=== PATIENT | female | born 2000 | race Caucasian/White ===

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

== ENCOUNTER 2021-06-25 12:54 | Emergency (ER) | payer OTHER, SELFPAY ==
[2021-06-25 12:55] VITALS: BP 153/91; PULSE 97; RESP 16; TEMP 36.9; O2SAT 97; BMI 23.3
--- NOTE | 2021-06-25 13:15 | CT_ITS ---
EXAM: CT ABDOMEN AND PELVIS WITH INTRAVENOUS CONTRAST CLINICAL INDICATION: Abdominal pain. TECHNIQUE: Helically acquired images were obtained of the abdomen and pelvis with intravenous contrast. This CT exam was performed using one or more of the following dose reduction techniques: automated exposure control, adjustment of the mA and/or kV according to patient size, and/or use of iterative reconstruction technique. This report was created using [employer] report generation technology. CONTRAST: Oral and amp; IV Gastrografin and amp; 100mL Isovue-300 COMPARISON: None. FINDINGS: LOWER THORAX: Unremarkable. Lung bases are clear. No cardiomegaly. No significant pericardial effusion. ABDOMEN: LIVER: Unremarkable. Homogeneous. No focal mass. GALLBLADDER AND BILE DUCTS: Unremarkable. No calcified gallstones. No gallbladder distention or wall edema. No intra- or extrahepatic biliary ductal dilation. PANCREAS: Unremarkable. No focal cystic or solid mass. SPLEEN: Unremarkable. Normal size without focal cystic or solid mass. ADRENALS: Unremarkable. No nodules. KIDNEYS AND URETERS: Unremarkable. Normal renal size and position. No hydronephrosis. STOMACH AND BOWEL: Gaseous dilatation of the rectum. Minimal gas in the remaining colon. Contrast in the ascending colon. Contrast in normal small bowel loops. No focal inflammatory change. PELVIS: APPENDIX: Normal. BLADDER: Unremarkable. REPRODUCTIVE: IUD device inside the anteverted uterus. ABDOMEN and PELVIS: INTRAPERITONEAL SPACE: Unremarkable. No ascites or other fluid collection. No free air. BONES/JOINTS: Unremarkable. No suspicious lytic or blastic abnormality. SOFT TISSUES: Unremarkable. No discrete abdominal or pelvic wall hernia. VASCULATURE: Unremarkable. Abdominal aorta is non-dilated. LYMPH NODES: Unremarkable. No enlarged lymph nodes. CT/Abdomen/Pelvis WITH Contrast IMPRESSION: No acute findings in the abdomen or pelvis. Electronically Signed: Zeke Ibarra MD at 15:32 EST ,
--- NOTE | 2021-06-25 13:16 | EDS_ITS ---
HPI History of Present Illness Chief Complaint: Abn Labs Detail of Chief Complaint: Abdominal pain and abnormal labs Informant: patient and parent Narrative Narrative: Patient presents to the emergency department chief complaint of abdominal pain that initially started about a month ago. Patient states that she has been vomiting daily several times a day. Patient was seen by her primary care physician who did some blood work and then was called and told to come to the ER because she had abnormal labs including a elevated white blood cell count and possibly an elevated lipase. Patient denies any blood in her stool or black tarry stools. She denies fevers. Patient currently having some vaginal spotting and does not typically have periods because she is on the Mirena IUD. Patient states her last bowel movement was about 5 or 6 days ago. Patient states she really has not eaten very much in the last 5 or 6 days. Prior similar symptoms: No PFSH PFSH Medical History no medical history Home Medications acetylcysteine 600 mg PO BID 06/25/21 [History Last Taken Unknown] lamotrigine 100 mg PO QHS 06/25/21 [History Last Taken Unknown] omeprazole 40 mg PO DAILY 06/25/21 [History Last Taken Unknown] ondansetron [Zofran ODT] 4 mg PO Q6H PRN 06/25/21 [History Last Taken Unknown] trazodone 50 mg PO QHS 06/25/21 [History Last Taken Unknown] Allergy/AdvReac Type Severity Reaction Status Date / Time No Known Allergies Allergy Verified 11/03/18 07:13 Surgical History no surgical history Social History Smoking Status: Never smoker [facility] ED Constitutional Constitutional ED: Reports systems reviewed and no addt'l complaints, except as documented; Denies body ache(s), change in weight or chills Eyes Eyes: Denies acute decrease in peripheral vision, change in vision, double vision or loss of vision ENT ENT ED: Reports none; Denies ear pain, lip swelling, loss taste/smell, neck pain, otalgia or sore throat Cardiovascular Cardiovascular: Reports none; Denies abdominal pain, chest pain with activity, leg edema, lightheadedness, palpitations, rapid heart rate or syncope Respiratory/Chest Respiratory/Chest: Reports none; Denies change in mental status, dry cough, dyspnea, hemoptysis, shortness of breath at rest or shortness of breath with exertion Gastrointestinal Gastrointestinal: Reports none, abdominal pain, nausea and vomiting; Denies change in stool character, diarrhea, hematemesis, hematochezia, melena or rectal bleeding Genitourinary Genitourinary ED: Reports none; Denies abdominal discomfort, anuria, dysuria, genital pain or polyuria Musculoskeletal Musculoskeletal: Reports none; Denies arthralgias, back pain, difficulty walking, extremity pain, muscle weakness or myalgias Integumentary Reports none; Denies abscess or rash Neurologic Neurologic: Reports none; Denies abnormal gait, confusion, focal weakness, frequent falls, headache(s), loss of vision, numbness, paresthesias, radicular pain, vertigo or weakness Psychiatric Psychiatric: Reports systems reviewed and no addt'l complaints, except as documented and none; Denies behavioral changes, confusion, difficulty concentrating, hallucinations, suicidal ideation, tactile hallucinations or visual hallucinations Endocrine Endocrinology: Denies none, cold intolerance, excessive sweating, fatigue or heat intolerance Hematologic/Lymphatic Hematologic/Lymphatic: Reports none; Denies anemia, easy bleeding or easy bruising Allergic/Immunologic Allergic/Immunologic ED: Denies as per HPI, none, lip swelling, mouth swelling, throat swelling, tongue swelling or hives EXAM Physical Exam Const Vital Signs: 06/25/21 12:55 06/25/21 13:03 06/25/21 15:03 Temperature 98.4 F Temperature Source Temporal Pulse Rate 97 68 Respiratory Rate 16 16 Respiratory Effort Normal Respiratory Pattern Normal Blood Pressure 153/91 H 115/78 Blood Pressure Mean 111 90 Pulse Ox 97 98 Oxygen Delivery Method Room Air Room Air Positive well nourished and well developed General Appearance ED: well developed and NAD HEENT Reports TM's clear and moist mucous membranes normocephalic and atraumatic; Negative for trauma or tenderness Tympanic Membrane ED: Yes TM's clear Eyes PERRL and EOMs intact bilaterally General Eye ED: Negative for pale conjunctiva or scleral icterus Neck no lymphadenopathy, supple and no JVD General: Negative for tenderness Chest Wall inspection of chest normal and palpation of chest normal Chest: Negative for tenderness Resp normal respiratory effort and clear to auscultation bilaterally Effort and Inspection: Negative for respiratory distress or pain with movement Auscultation: Negative for rhonchi, wheezes or diminished lung sounds Cardio regular rate, regular rhythm, S1 normal heart sound, S2 normal heart sound and no murmurs Peripheral Pulses: pulses 2+ throughout GI normal to inspection, nondistended, normoactive bowel sounds, soft to palpation, non-distended and no masses GI Narrative: Patient with diffuse tenderness to the epigastric region with guarding. There is no rebound, rigidity, or peritoneal signs. Patient also with tenderness to the left lower quadrant with some guarding. Back/Spine no CVA tenderness and no thoracic nor lumbar tenderness Extremity normal to inspection General Extremety ED: Negative for edema General Extremity: Negative for edema Neuro oriented x3, CN's II-XII intact bilaterally, no sensory deficits noted and gait normal Sensorium / Orientation: awake, alert, oriented to person, oriented to place and oriented to time Motor Exam: strength 5/5 throughout and strength abnormal Psych mental status grossly normal Skin no rashes or lesions noted and no wounds MDM MDM MDM Narrative Medical decision making narrative: IV line established on arrival. Patient did not anything for pain or nausea. Lab work-up was essentially unremarkable. Patient also had a CT scan of the abdomen pelvis that was normal. At this point etiology of her pain is unclear. Patient has an ultrasound scheduled of the abdomen tomorrow and she is advised to continue with that. Patient has Zofran at home for nausea and also was started on Prilosec by her primary care physician she is to continue with that. At this point etiology of her pain is unclear. I will refer her to GI locally for follow-up although they do state that their PCP arranged follow-up with GI but not till the end of July so they will see if they can get in sooner with Dr. Wesley's office. Patient advised to return if worsening pain, fever, vomiting, hematemesis, black tarry stool, or condition should worsen anyway. Lab Data Attestation: I reviewed the patient's lab results. Labs: Laboratory Results - last 24 hr 06/25/21 06/25/21 06/25/21 13:25 13:25 13:25 WBC 9.2 RBC 4.97 Hgb 15.9 H Hct 46.8 MCV 94.2 MCH 32.0 MCHC 34.0 RDW Std Deviation 42.7 RDW Coeff of [place] 12.2 Plt Count 253 MPV 9.3 Immature Gran % (Auto) 0.200 Neut % (Auto) 73.7 H Lymph % (Auto) 20.1 [place] % (Auto) 5.5 Eos % (Auto) 0.1 Baso % (Auto) 0.4 Absolute Neuts (auto) 6.7 Absolute Lymphs (auto) 1.84 Nucleated RBC % 0 Sodium 137 Potassium 3.7 Chloride 103 Carbon Dioxide 26.0 Anion Gap 8 BUN 14 Creatinine 0.81 Estim Creat Clear Calc 90.88 Est GFR (MDRD) Af Amer 115 Est GFR (MDRD) Non-Af 95 BUN/Creatinine Ratio 17.4 Glucose 85 Lactic Acid 1.0 Calcium 9.3 Total Bilirubin 0.80 AST 18 ALT 21 Alkaline Phosphatase 55 Total Protein 7.7 Albumin 4.5 Globulin 3.2 Albumin/Globulin Ratio 1.4 Lipase 403 H Serum , Qual Urine Color Urine Clarity Urine pH Ur Specific [place] Urine Protein Urine Glucose (UA) Urine Ketones Urine Occult Blood Urine Nitrite Urine Bilirubin Urine Urobilinogen Ur Leukocyte Esterase 06/25/21 06/25/21 13:25 15:05 WBC RBC Hgb Hct MCV MCH MCHC RDW Std Deviation RDW Coeff of [place] Plt Count MPV Immature Gran % (Auto) Neut % (Auto) Lymph % (Auto) [place] % (Auto) Eos % (Auto) Baso % (Auto) Absolute Neuts (auto) Absolute Lymphs (auto) Nucleated RBC % Sodium Potassium Chloride Carbon Dioxide Anion Gap BUN Creatinine Estim Creat Clear Calc Est GFR (MDRD) Af Amer Est GFR (MDRD) Non-Af BUN/Creatinine Ratio Glucose Lactic Acid Calcium Total Bilirubin AST ALT Alkaline Phosphatase Total Protein Albumin Globulin Albumin/Globulin Ratio Lipase Serum , Qual NEGATIVE Urine Color Yellow Urine Clarity Sl. Cloudy Urine pH 6.0 Ur Specific [place] 1.010 Urine Protein Negative Urine Glucose (UA) Normal Urine Ketones 150 A* Urine Occult Blood 50 H Urine Nitrite Negative Urine Bilirubin Negative Urine Urobilinogen Normal Ur Leukocyte Esterase Negative Radiography Diagnostic Testing: Clinical Impression(s) from Imaging Studies Abdomen/Pelvis CT 06/25/21 13:15 IMPRESSION: No acute findings in the abdomen or pelvis. Electronically Signed: Zeke Ibarra MD at 15:32 EST , Discharge Plan Triage Chief Complaint: Abn Labs ED Provider: Yaya Heard Dx/Rx/DC Orders Clinical Impression: Abdominal pain Instructions: ED Abdominal Pain Unkn Cause Fem Prescriptions: No Action trazodone 50 mg Tablet 50 mg PO QHS RF: 0 omeprazole 40 mg Capsule,Delayed Release(Dr/Ec) 40 mg PO DAILY RF: 0 ondansetron [Zofran ODT] 4 mg Tablet,Disintegrating 4 mg PO Q6H PRN (Reason: Nausea) RF: 0 lamotrigine 100 mg Tablet 100 mg PO QHS RF: 0 acetylcysteine 600 mg Tablet 600 mg PO BID RF: 0 Primary Care Provider: Nguyễn Kirkalnd Referrals: Nguyễn Kirkland MD [Primary Care Provider] - Kt Wesley DO [STAFF PHYSICIAN] - 5-7 Days Disposition Disposition: Home, Self Care
[2021-06-25 13:47] LABS: Absolute Lymphocyte Count 1.84 X10^3/uL (0.83-4.51); Absolute Neutrophil Count 6.7 X10^3/uL (2.0-7.7); Basophil# 0.04 X10^3/uL; Basophil% 0.4 % (0-1); Eosinophil# 0.01 X10^3/uL; Eosinophils% 0.1 % (0-5); Hematocrit 46.8 % (37-47); Hemoglobin 15.9 g/dL (12.0-15.0); Lymphocyte # 1.84 X10^3/ul (0.83-4.51); Lymphocyte % 20.1 % (19-41); Mean Corpuscular Volume 94.2 fL (81-99); Mean Platelet Vol. 9.3 fl (6.2-12.0); Monocyte% 5.5 % (0-10); NRBC Flagged by Analyzer 0 % (0-5); Neutrophil # 6.74 X10^3/uL (2.7-7.7); Neutrophil % 73.7 % (47-70); Platelet Count 253 K/mm3 (150-450); RBC Distribution Width CV 12.2 % (11.6-14.6); RBC Distribution Width SD 42.7 fl (35.1-43.9); Red Blood Count 4.97 M/mm3 (4.2-5.4); White Blood Count 9.2 K/mm3 (4.4-11.0)
[2021-06-25 14:04] LABS: ALB/GLOB Ratio 1.4 RATIO (0.9-2.4); AST(SGOT) 18 U/L (15-37); Alanine Aminotransfer ALT/SGPT 21 U/L (13-56); Albumin, Serum 4.5 g/dL (3.2-5.0); Alkaline Phosphatase 55 U/L (45-117); Anion Gap 8 (5-15); BUN 14 mg/dL (7-18); BUN/Creat Ratio 17.4 RATIO (10-20); Calcium,Total 9.3 mg/dL (8.5-10.1); Chloride 103 mmol/L (98-107); Creatinine, Serum 0.81 mg/dL (0.55-1.02); EST Glomerular Filtration Rate 95 mL/min (>60); Est Glom Filt Rate - Afr Amer 115 mL/min (>60); Estimated Creatinine Clearance 90.88 ml/min; Globulin 3.2 g/dL (2.2-4.2); Glucose 85 mg/dL (74-106); Lipase 403 U/L (73-393); Potassium 3.7 mmol/L (3.5-5.1); Protein, Total 7.7 g/dL (6.4-8.2); Sodium Level 137 mmol/L (136-145)
[2021-06-25] MEDS: 0.9% Normal Saline 1,000 ML 125 ML IV (14:05)
[2021-06-25 14:08] LABS: Internal QC Validated? YES +Cl - CLEAR BKGD; Pregnancy, Serum, hCG Quali. NEGATIVE Negative
[2021-06-25 15:03] VITALS: BP 115/78; PULSE 68; RESP 16; O2SAT 98
[2021-06-25 15:22] LABS: Mucous, Urine 0 SEEN /hpf (<or=2+); White Blood Cells 0 SEEN /hpf (0-5)
[2021-06-25 15:28] LABS: Color, Urine Yellow (Yellow); Glucose, Dipstick Normal (Normal); Leukocyte Esterase-Dipstick Negative /ul (Negative); Nitrite-Dipstick Negative (Negative); Occult Blood-Urine 50 /ul (Negative); Protein-Dipstick Negative (Negative); Urine Bilirubin Dipstick Negative (Negative); Urine Clarity Sl. Cloudy (Clear); Urine Urobilinogen Normal (Normal)
[2021-06-25 15:40] LABS: Ketone-Dipstick 150 mg/dl (Negative)
[2021-06-25 15:59] LABS: Red Blood Cells-Urine 5-10 SEEN /hpf (0-5)
[2021-06-25 16:00] LABS: Bacteria RARE /hpf (None Seen); Squamous Epithelial Cells - UA 25-50 SEEN /hpf (5-10)
[2021-06-25 16:01] LABS: Amorphous Sediment 2+ URATE
[2021-06-25 16:05] VITALS: RESP 14
== END 2021-06-25 16:06 | disposition home or self-care (01) ==
PROVIDERS: Emergency Provider Emergency Medicine; PCP Family Medicine; Visit Provider Emergency Medicine
DX: R10.9 Unspecified abdominal pain (principal); D72.829 Elevated white blood cell count, unspecified; R11.0 Nausea; Z97.5 Presence of (intrauterine) contraceptive device; Z79.899 Other long term (current) drug therapy
CPT/HCPCS: 74177; 80053; 81001; 83605; 83690; 84703; 85025; 96360; 96361; 99283; J7030; Q9967

== ENCOUNTER 2022-08-21 02:10 | Emergency (ER) | payer OTHER, SELFPAY ==
[2022-08-21 02:11] VITALS: BP 128/85; PULSE 74; RESP 17; TEMP 36.6; O2SAT 98; BMI 24.9
[2022-08-21 02:13] VITALS: O2SAT 99
--- NOTE | 2022-08-21 02:21 | EDS_ITS ---
HPI History of Present Illness Chief Complaint: Other, Pain/Inj Detail of Chief Complaint: Left fourth finger injury Informant: patient Narrative Narrative: Patient presents with left fourth finger injury. She caught the end of her nail on something and pulled the nail up from the nail bed. She denies any injury to the finger itself. PFSH PFSH Medical History no medical history no medical history Home Medications acetylcysteine 600 mg tablet 600 mg PO BID 06/25/21 [History Last Taken Unknown] lamotrigine 100 mg tablet 100 mg PO QHS 06/25/21 [History Last Taken Unknown] omeprazole 40 mg capsule,delayed release 40 mg PO DAILY 06/25/21 [History Last Taken Unknown] ondansetron 4 mg disintegrating tablet 4 mg PO Q6H PRN Nausea 06/25/21 [History Last Taken Unknown] trazodone 50 mg tablet 50 mg PO QHS 06/25/21 [History Last Taken Unknown] Allergy/AdvReac Type Severity Reaction Status Date / Time No Known Allergies Allergy Verified 11/03/18 07:13 Social History Smoking Status: Never smoker ROS ROS ED Constitutional Constitutional ED: Denies chills or fever(s) Eyes Eyes: Denies change in vision ENT ENT ED: Denies rhinorrhea Cardiovascular Cardiovascular: Denies chest pain Respiratory/Chest Respiratory/Chest: Denies cough or dyspnea Gastrointestinal Gastrointestinal: Denies abdominal pain Musculoskeletal Musculoskeletal: Reports extremity pain; Denies back pain Integumentary Denies Abrasions or rash Neurologic Neurologic: Denies paresthesias or weakness Allergic/Immunologic Allergic/Immunologic ED: Denies lip swelling or urticaria EXAM Physical Exam Const Vital Signs: 08/21/22 02:11 08/21/22 02:13 Temperature 97.9 F Temperature Source Oral Pulse Rate 74 Respiratory Rate 17 Blood Pressure 128/85 H Blood Pressure Mean 99 Pulse Ox 98 99 Oxygen Delivery Method Room Air Room Air Positive well nourished and well developed General Appearance ED: well developed HEENT Reports moist mucous membranes Neck no lymphadenopathy Chest Wall inspection of chest normal and palpation of chest normal Resp normal respiratory effort and clear to auscultation bilaterally Cardio regular rate and regular rhythm Extremity Extremity Narrative: Fingernail on the left fourth finger lifted at the distal end. Mild blood noted under the nail. No bony tenderness over the finger itself. Neuro oriented x3 and no sensory deficits noted Psych mental status grossly normal MDM MDM MDM Narrative Medical decision making narrative: Digital block of the left fourth finger was performed with 3 cc 1% lidocaine. Wound is cleansed and irrigated. Nail is still tightly attached at the base of the nail. In light of this the nail was laid back down and secured with Steri- Strips. Bulky dressing will be applied along with a AlumaFoam splint to protect the end of her finger. New nail will grow out and push the current nail out. Wound care discussed. Return instructions given. Discharge Plan Triage Chief Complaint: Other, Pain/Inj ED Provider: Sveta Balbuena Dx/Rx/DC Orders Clinical Impression: Avulsion of nail Instructions: ED Detached Fingernail or Toenail Prescriptions: No Action trazodone 50 mg Tablet 50 mg PO QHS omeprazole 40 mg Capsule,Delayed Release(Dr/Ec) 40 mg PO DAILY ondansetron [Zofran ODT] 4 mg Tablet,Disintegrating 4 mg PO Q6H PRN (Reason: Nausea) lamotrigine 100 mg Tablet 100 mg PO QHS acetylcysteine 600 mg Tablet 600 mg PO BID Primary Care Provider: Nguyễn Kirkland Referrals: Nguyễn Kirkland MD [Primary Care Provider] - As Needed Disposition Disposition: Home, Self Care
== END 2022-08-21 03:13 | disposition home or self-care (01) ==
LOC: ED 02:58
PROVIDERS: Emergency Provider Emergency Medicine; PCP Family Medicine; Visit Provider Emergency Medicine
DX: S61.305A Unspecified open wound of left ring finger with damage to nail, initial encounter (principal); X58.XXXA Exposure to other specified factors, initial encounter
CPT/HCPCS: 99283

== ENCOUNTER 2023-07-15 12:02 | Emergency (ER) | payer OTHER, SELFPAY ==
[2023-07-15 12:03] VITALS: BP 135/83; PULSE 94; RESP 16; TEMP 36.7; O2SAT 97; BMI 23.9
--- NOTE | 2023-07-15 13:26 | EDS_ITS ---
HPI <NARDA Veloz - Last Filed: 07/15/23 18:55> HPI - Female History of Present Illness Chief Complaint: Narrative Narrative: Patient presenting today due to nausea and vomiting that she has had since Saturday. She reports that she recently had a urine test come back positive. She is G1, P0. Last menstrual period was at the end of May. She has not yet seen OB but does have a appointment with them next Saturday. She reports that she is vomiting about twice a day, primarily in the morning. She called her TOUR OPERATOR and they encouraged her to come into the ED for IV fluids to prevent dehydration. She has been taking Zofran as needed but it has not been helping. PMH includes anxiety and bipolar disorder, she reports that her psychiatrist recently took her off of her Seroquel and Vistaril due to her being . She denies any abdominal pain or vaginal bleeding. PFSH <NARDA Veloz - Last Filed: 07/15/23 18:55> PFSH Home Medications acetylcysteine 600 mg tablet 600 mg PO BID 06/25/21 [History Last Taken Unknown] lamotrigine 100 mg tablet 100 mg PO QHS 06/25/21 [History Last Taken Unknown] ondansetron 4 mg disintegrating tablet 4 mg PO Q6H PRN Nausea 06/25/21 [History Last Taken Unknown] cephalexin 500 mg capsule 500 mg PO TID 7 days #20 caps 07/15/23 [Rx Last Taken Unknown] doxylamine 10 mg-pyridoxine (vit B6) 10 mg tablet,delayed release (Diclegis) 1 tab PO BID #14 tabs 07/15/23 [Rx Last Taken Unknown] Allergy/AdvReac Type Severity Reaction Status Date / Time No Known Allergies Allergy Verified 07/15/23 12:02 Social History Smoking Status: Former smoker ROS <NARDA Veloz - Last Filed: 07/15/23 18:55> ROS ED Constitutional Constitutional ED: Denies chills or fever(s) Cardiovascular Cardiovascular: Denies chest pain Respiratory/Chest Respiratory/Chest: Denies cough or dyspnea Gastrointestinal Gastrointestinal: Reports nausea and vomiting; Denies abdominal pain or diarrhea Genitourinary Genitourinary ED: Denies dysuria, hematuria or urinary urgency Musculoskeletal Musculoskeletal: Denies arthralgias or myalgias Integumentary Denies rash Neurologic Neurologic: Denies weakness EXAM <NARDA Veloz - Last Filed: 07/15/23 18:55> Physical Exam Const Vital Signs: 07/15/23 12:03 07/15/23 15:27 07/15/23 16:09 Temperature 98.1 F 98 F Temperature Source Temporal Pulse Rate 94 84 78 Respiratory Rate 16 16 16 Blood Pressure 135/83 H 120/79 121/78 H Blood Pressure Mean 100 92 92 Pulse Ox 97 100 99 Oxygen Delivery Method Room Air Room Air Positive well nourished, well developed and no apparent distress General Appearance ED: well developed HEENT Reports normocephalic and head/scalp atraumatic Mouth ED: Yes moist mucous membranes normal Eyes PERRL and EOMs intact bilaterally Neck full ROM and supple Chest Wall inspection of chest normal Resp normal respiratory effort and clear to auscultation bilaterally Cardio regular rate and regular rhythm GI soft to palpation, non-tender, non-distended and no masses Back/Spine normal ROM and normal to inspection Extremity normal to inspection and full ROM Neuro oriented x3, CN's II-XII intact bilaterally, moves all extremities, no focal motor deficits and no sensory deficits noted Sensorium / Orientation: awake and alert Psych mental status grossly normal and thought process normal Skin no rashes or lesions noted and no wounds <Dr. Bernabe Eastman MD - Last Filed: 07/17/23 08:20> Physical Exam Const Vital Signs: 07/15/23 12:03 07/15/23 15:27 07/15/23 16:09 Temperature 98.1 F 98 F Temperature Source Temporal Pulse Rate 94 84 78 Respiratory Rate 16 16 16 Blood Pressure 135/83 H 120/79 121/78 H Blood Pressure Mean 100 92 92 Pulse Ox 97 100 99 Oxygen Delivery Method Room Air Room Air MDM <NARDA Veloz - Last Filed: 07/15/23 18:55> [facility] Narrative Medical decision making narrative: Patient presenting due to nausea and vomiting that she has had since Saturday. Primarily occurs in the morning, she will have about 2 episodes of vomiting. She has been taking Zofran with minimal relief of her symptoms. She is nontoxic-appearing and in no acute distress, vitals are unremarkable. She does not have any abdominal pain or vaginal bleeding. She has an appointment with OB next week. She came in due to concerns for dehydration. Clinically, she does not look dehydrated. Basic labs will be obtained to rule out electrolyte abnormality, she will be given IV fluids and Zofran. On reexamination she reports improvement of her symptoms. UA does suggest UTI, this was cultured and she will be placed on Keflex with first dose here. She will be given a prescription for Diclegis. She does have follow-up appointment with OB next week and has been given return instructions. She is comfortable with plan. I have personally performed a face to face assessment of the patient and have reviewed the ZHOU Note. I performed a substantive portion of the visit including all aspects of the following. My langley findings include: History is remarkable for 22-year-old who presents with nausea vomiting 2-3 times a day. Her last normal menstrual was the end of May. She is sexually active. She denies history of STI, endometriosis ovarian cyst. She does not know her blood type. She denies vaginal bleeding. She contacted her internal revenue agent Dr. Cooper who recommended she come to the emergency department. She does endorse thirst and dry mouth. She denies orthostatic Exam is remarkable for dry mucosa. HEENT is otherwise unremarkable. Heart is regular. Rate is normal. There are no murmur, gallop or rub. Abdomen soft nontender. There is no paraspinal megaly. There is no CVA tenderness noted. There is no dermatologic lesions noted. Medical Decision Making IV fluids were started. Urine was obtained to assess specific gravity and ketones. Plan is discharge with antiemetic. Other additions or changes: [None] Lab Data Labs: Laboratory Results - last 24 hr 07/15/23 07/15/23 13:40 15:05 WBC 8.5 RBC 4.57 Hgb 15.1 H Hct 42.9 MCV 93.9 MCH 33.0 H MCHC 35.2 RDW Std Deviation 45.0 H RDW Coeff of [place] 13.1 Plt Count 243 MPV 9.0 Immature Gran % (Auto) 0.200 Neut % (Auto) 72.9 H Lymph % (Auto) 19.7 [place] % (Auto) 6.3 Eos % (Auto) 0.1 Baso % (Auto) 0.8 Absolute Neuts (auto) 6.2 Absolute Lymphs (auto) 1.68 Nucleated RBC % 0 Sodium 136 Potassium 3.9 Chloride 108 H Carbon Dioxide 25.0 Anion Gap 3 L BUN 11 Creatinine 0.90 Estim Creat Clear Calc 80.42 Est GFR (MDRD) Af Amer 99 Est GFR (MDRD) Non-Af 82 BUN/Creatinine Ratio 12.2 Glucose 88 Calcium 10.0 Urine Color Yellow Urine Clarity Sl. Cloudy Urine pH 6.0 Ur Specific [place] 1.015 Urine Protein Negative Urine Glucose (UA) Normal Urine Ketones 150 A* Urine Occult Blood 10 H Urine Nitrite Positive H Urine Bilirubin Negative Urine Urobilinogen Normal Ur Leukocyte Esterase 100 H Urine RBC 0 SEEN Urine WBC 5-10 SEEN Ur Squamous Epith Cells 5-10 SEEN Urine Bacteria 1+ Urine Mucus 0 SEEN <Dr. Bernabe Eastman MD - Last Filed: 07/17/23 08:20> [facility] MDM Narrative Medical decision making narrative: Patient presenting due to nausea and vomiting that she has had since Saturday. Primarily occurs in the morning, she will have about 2 episodes of vomiting. She has been taking Zofran with minimal relief of her symptoms. She is nontoxic-appearing and in no acute distress, vitals are unremarkable. She does not have any abdominal pain or vaginal bleeding. She has an appointment with OB next week. She came in due to concerns for dehydration. Clinically, she does not look dehydrated. Basic labs will be obtained to rule out electrolyte abnormality, she will be given IV fluids and Zofran. I have personally performed a face to face assessment of the patient and have reviewed the Z[facility] Note. I performed a substantive portion of the visit including all aspects of the following. My langley findings include: History is remarkable for 22-year-old who presents with nausea vomiting 2-3 times a day. Her last normal menstrual was the end of May. She is sexually active. She denies history of STI, endometriosis ovarian cyst. She does not know her blood type. She denies vaginal bleeding. She contacted her internal revenue agent Dr. Cooper who recommended she come to the emergency department. She does endorse thirst and dry mouth. She denies orthostatic Exam is remarkable for dry mucosa. HEENT is otherwise unremarkable. Heart is regular. Rate is normal. There are no murmur, gallop or rub. Abdomen soft nontender. There is no paraspinal megaly. There is no CVA tenderness noted. There is no dermatologic lesions noted. Medical Decision Making IV fluids were started. Urine was obtained to assess specific gravity and ketones. Plan is discharge with antiemetic. Other additions or changes: [None] Lab Data Attestation: I reviewed the patient's lab results. Lab results narrative: CBC is unremarkable. Basic metabolic panel is unremarkable. Labs: Laboratory Results - last 24 hr 07/15/23 07/15/23 13:40 15:05 WBC 8.5 RBC 4.57 Hgb 15.1 H Hct 42.9 MCV 93.9 MCH 33.0 H MCHC 35.2 RDW Std Deviation 45.0 H RDW Coeff of [place] 13.1 Plt Count 243 MPV 9.0 Immature Gran % (Auto) 0.200 Neut % (Auto) 72.9 H Lymph % (Auto) 19.7 [place] % (Auto) 6.3 Eos % (Auto) 0.1 Baso % (Auto) 0.8 Absolute Neuts (auto) 6.2 Absolute Lymphs (auto) 1.68 Nucleated RBC % 0 Sodium 136 Potassium 3.9 Chloride 108 H Carbon Dioxide 25.0 Anion Gap 3 L BUN 11 Creatinine 0.90 Estim Creat Clear Calc 80.42 Est GFR (MDRD) Af Amer 99 Est GFR (MDRD) Non-Af 82 BUN/Creatinine Ratio 12.2 Glucose 88 Calcium 10.0 Urine Color Yellow Urine Clarity Sl. Cloudy Urine pH 6.0 Ur Specific [place] 1.015 Urine Protein Negative Urine Glucose (UA) Normal Urine Ketones 150 A* Urine Occult Blood 10 H Urine Nitrite Positive H Urine Bilirubin Negative Urine Urobilinogen Normal Ur Leukocyte Esterase 100 H Urine RBC 0 SEEN Urine WBC 5-10 SEEN Ur Squamous Epith Cells 5-10 SEEN Urine Bacteria 1+ Urine Mucus 0 SEEN Discharge Plan Triage Chief Complaint: ED Midlevel Provider: Zita Mcdonald ED Provider: Bernabe Eastman Dx/Rx/DC Orders Clinical Impression: First trimester , Nausea & vomiting, UTI (urinary tract infection), Acute dehydration, Ketosis Instructions: ED Hyperemesis Gravidarum Prescriptions: New doxylamine-pyridoxine (vit B6) [Diclegis] 10-10 mg tablet,delayed release (DR/EC) 1 tab PO BID Qty: 14 0RF cephalexin 500 mg capsule 500 mg PO TID 7 Days Qty: 20 0RF No Action ondansetron [Zofran ODT] 4 mg Tablet,Disintegrating 4 mg PO Q6H PRN (Reason: Nausea) lamotrigine 100 mg Tablet 100 mg PO QHS acetylcysteine 600 mg Tablet 600 mg PO BID Primary Care Provider: Nguyễn Kirkland Referrals: Nguyễn Kirkland MD [Primary Care Provider] - 3-5 Days Activity Restrictions/Additional Instructions: Follow-up with OB and return for any worsening of your symptoms. Disposition Disposition: Home, Self Care Discharge Date/Time: 07/15/23 16:10
[2023-07-15] MEDS: 0.9% Normal Saline (1000mL) 1,000 ML 999 ML IV (13:47)
[2023-07-15] MEDS: Ondansetron 4 MG/2 ML Vial IV (13:47)
[2023-07-15 13:59] LABS: Absolute Lymphocyte Count 1.68 X10^3/uL (0.83-4.51); Absolute Neutrophil Count 6.2 X10^3/uL (2.0-7.7); Basophil# 0.07 X10^3/uL; Basophil% 0.8 % (0-1); Eosinophil# 0.01 X10^3/uL; Eosinophils% 0.1 % (0-5); Hematocrit 42.9 % (37-47); Hemoglobin 15.1 g/dL (12.0-15.0); Lymphocyte # 1.68 X10^3/ul (0.83-4.51); Lymphocyte % 19.7 % (19-41); Mean Corp Hgb Conc 35.2 g/dL (32-36); Mean Corpuscular Volume 93.9 fL (81-99); Monocyte# 0.54 X10^3/uL; Monocyte% 6.3 % (0-10); NRBC Flagged by Analyzer 0 % (0-5); Neutrophil # 6.21 X10^3/uL (2.7-7.7); Neutrophil % 72.9 % (47-70); Platelet Count 243 K/mm3 (150-450); RBC Distribution Width CV 13.1 % (11.6-14.6); Red Blood Count 4.57 M/mm3 (4.2-5.4); White Blood Count 8.5 K/mm3 (4.4-11.0)
[2023-07-15 14:15] LABS: Anion Gap 3 (5-15); BUN 11 mg/dL (7-18); BUN/Creat Ratio 12.2 RATIO (10-20); Chloride 108 mmol/L (98-107); EST Glomerular Filtration Rate 82 mL/min (>60); Est Glom Filt Rate - Afr Amer 99 mL/min (>60); Estimated Creatinine Clearance 80.42 ml/min; Glucose 88 mg/dL (74-106); Potassium 3.9 mmol/L (3.5-5.1); Sodium Level 136 mmol/L (136-145)
[2023-07-15 15:20] LABS: Mucous, Urine 0 SEEN /hpf (<or=2+); Red Blood Cells-Urine 0 SEEN /hpf (0-5)
[2023-07-15 15:26] LABS: Color, Urine Yellow (Yellow); Glucose, Dipstick Normal (Normal); Leukocyte Esterase-Dipstick 100 /ul (Negative); Nitrite-Dipstick Positive (Negative); Occult Blood-Urine 10 /ul (Negative); Protein-Dipstick Negative (Negative); Specific Gravity, Urine 1.015 (1.002-1.030); Urine Bilirubin Dipstick Negative (Negative); Urine Clarity Sl. Cloudy (Clear); Urine Urobilinogen Normal (Normal)
[2023-07-15 15:27] VITALS: BP 120/79; PULSE 84; RESP 16; O2SAT 100
[2023-07-15 15:48] LABS: Ketone-Dipstick 150 mg/dl (Negative)
[2023-07-15 15:50] LABS: Bacteria 1+ /hpf (None Seen); Squamous Epithelial Cells - UA 5-10 SEEN /hpf (5-10); White Blood Cells 5-10 SEEN /hpf (0-5)
[2023-07-15] MEDS: Cephalexin 250 MG Capsule 500 MG PO (16:06)
[2023-07-15 16:09] VITALS: BP 121/78; PULSE 78; RESP 16; TEMP 36.6; O2SAT 99
== END 2023-07-15 16:10 | disposition home or self-care (01) ==
PROVIDERS: Physician Assistant; Emergency Provider Emergency Medicine; PCP Family Medicine; Visit Provider Emergency Medicine
DX: O23.41 Unspecified infection of urinary tract in pregnancy, first trimester (principal); E88.89 Other specified metabolic disorders; O21.9 Vomiting of pregnancy, unspecified; O99.281 Endocrine, nutritional and metabolic diseases complicating pregnancy, first trimester; E86.0 Dehydration; Z3A.00 Weeks of gestation of pregnancy not specified; Z87.891 Personal history of nicotine dependence
CPT/HCPCS: 80048; 81001; 85025; 87077; 87086; 87088; 87186; 96361; 96374; 99282; J7030; J2405

== ENCOUNTER 2023-10-27 19:49 | Emergency (ER) | payer OTHER, SELFPAY ==
[2023-10-27 19:50] VITALS: BP 147/95; PULSE 122; RESP 20; TEMP 37; O2SAT 97; BMI 22.6
--- NOTE | 2023-10-27 20:03 | ED.VIS.FEGU ---
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 Over the last 3 days she reports heavy bleeding and changing her tampon every 30 minutes. She is also wearing pads. She states she is passing quarter to softball size clots today. She has no abdominal pain. No fever chills nausea or vomiting. She states she had a miscarriage at 6 weeks in August 2023 when the ultrasound showed a heartbeat and developed. She reports having a normal menstrual cycle in September. No blood thinners. PFSH <NARDA Simms - Last Filed: 10/27/23 21:42> PFS Home Medications ?Medication ?Instructions ?Recorded ?Last Taken ?Type acetylcysteine 600 mg tablet 600 mg PO BID 06/25/21 Unknown History lamotrigine 100 mg tablet 100 mg PO QHS 06/25/21 Unknown History ondansetron 4 mg disintegrating 4 mg PO Q6H PRN Nausea 06/25/21 Unknown History tablet cephalexin 500 mg capsule 500 mg PO TID 7 days #20 caps 07/15/23 Unknown Rx doxylamine 10 mg-pyridoxine (vit 1 tab PO BID #14 tabs 07/15/23 Unknown Rx B6) 10 mg tablet,delayed release (Diclegis) norethindrone acetate 5 mg tablet 5 mg PO TID PRN PRN Vaginal 10/27/23 Unknown Rx bleeding #20 tabs Allergy/AdvReac Type Severity Reaction Status Date / Time No Known Allergies Allergy Verified 10/27/23 19:52 Social History Smoking Status: Current every day smoker tobacco type: e-cigarettes ROS <NARDA Simms - Last Filed: 10/27/23 21:42> ROS ED ROS Narrative Constitutional: Negative for fever, chills, malaise. CVS: Negative for chest pain, syncope. Respiratory: Negative for shortness of breath. GI: Negative for abdominal pain, nausea, vomiting. : Negative for dysuria, hematuria or frequency. EXAM <NARDA Simms - Last Filed: 10/27/23 21:42> Physical Exam Narrative Exam Narrative: CONST: Patient sitting in no acute distress. EYES: Normal inspection. NECK: Normal inspection. RESP: No respiratory distress, CTAB. CVS: Regular rate and rhythm, no murmur, no gallop. ABD: Soft and nontender, no guarding or rebound, nondistended. Pelvic: Normal external genitalia. During speculum exam she passed 2 golf ball sized dark red blood clots. Cervix has slow active bleeding. Cervix and vaginal mucosa appears normal. SKIN: Color normal, no rash, warm, dry, intact. EXTREMITIES: Normal appearance, no pedal edema. NEURO: Alert and answering questions appropriately. PSYCH: Normal affect. Const Vital Signs: 10/27/23 19:50 10/27/23 20:59 Temperature 98.6 F Temperature Source Temporal Pulse Rate 122 H 98 Respiratory Rate 20 H 8 L Blood Pressure 147/95 H 137/86 H Blood Pressure Mean 112 103 Pulse Ox 97 98 Oxygen Delivery Method Room Air Room Air <Dr. Wero Tijerina MD - Last Filed: 10/27/23 20:23> Physical Exam Const Vital Signs: 10/27/23 19:50 10/27/23 20:59 Temperature 98.6 F Temperature Source Temporal Pulse Rate 122 H 98 Respiratory Rate 20 H 8 L Blood Pressure 147/95 H 137/86 H Blood Pressure Mean 112 103 Pulse Ox 97 98 Oxygen Delivery Method Room Air Room Air MDM <NARDA Simms - Last Filed: 10/27/23 21:42> [facility] Narrative Medical decision making narrative: History from: Patient and significant other Differential: Dysfunctional uterine bleeding, anemia, 23-year-old female presents with heavy menstrual bleeding. Her menses started 6 days ago and became heavy 3 days ago with clots. No abdominal pain. She appears well and nontoxic. She is tachycardic in the 120s, otherwise stable vital signs. Abdomen soft and nontender. On pelvic exam there were 2 large clots approximately the size of a golf ball and slow active bleeding from the cervix. CBC is WNL with hemoglobin of 14.7, platelets 296. Chemistries unremarkable. Serum negative. She was given a liter of IV fluids and on reassessment around 9:30 PM is resting much more comfortably, calm, heart rate 98. Transvaginal ultrasound pending. The attending discussed the case with on-call PRIMARY SPECIAL EDUCATION TEACHER, Dr. Kirsten Rodriguez, who advised progesterone script and close follow up in the office. Will dispo accordingly pending ultrasound results. I have personally performed a face to face assessment of the patient and have reviewed the ZHOU Note. I performed a substantive portion of the visit including all aspects of the following. My langley findings include: History is 23-year-old female Ab1 with that being a miscarriage in August around 6 weeks. Thought she completed miscarriage was not having any problems. She had a normal menstrual period in September. A week ago on Saturday she started having vaginal bleeding thought was normal menstrual period it continued on Saturday and got heavier today. She denies any bleeding disorders. She has had mild bruising lately. And a couple nosebleeds. She is on no medications and no blood thinners. There is no family history of bleeding disorders. She denies any discharge or fever. No recent illness. She did have care with her first trimester miscarriage at the [facility]. She has never had any issues like this before. Exam is [well-appearing 23-year-old female. Vital signs stable afebrile. Significant other bedside. H EENT exam unremarkable. Neck nontender. Lungs clear. Heart regular rhythm. Rate about 110. No murmur. Abdomen soft nontender. Normal bowel sounds no peritoneal signs. No uterine or suprapubic tenderness. Moving all 4 extremities. Calves are nontender without edema. Minimal bruising on her left proximal thigh. No significant hematoma. Very small bruise. Neurologically she is awake and alert. No focal motor deficits. Benign exam.] Medical Decision Making [23-year-old with a miscarriage in August. Heavier vaginal bleeding. Screening labs will be obtained. Pelvic exam.] Other additions or changes: [None] Lab Data Labs: Laboratory Results - last 24 hr 10/27/23 10/27/23 20:12 20:34 WBC 8.6 RBC 4.48 Hgb 14.7 Hct 43.6 MCV 97.3 MCH 32.8 H MCHC 33.7 RDW Std Deviation 47.8 H RDW Coeff of [place] 13.4 Plt Count 296 MPV 9.0 Immature Gran % (Auto) 0.200 Neut % (Auto) 71.5 H Lymph % (Auto) 23.4 [place] % (Auto) 3.9 Eos % (Auto) 0.2 Baso % (Auto) 0.8 Absolute Neuts (auto) 6.1 Absolute Lymphs (auto) 2.00 Nucleated RBC % 0 Sodium 139 Potassium 3.7 Chloride 109 H Carbon Dioxide 21.0 Anion Gap 9 BUN 11 Creatinine 0.86 Estim Creat Clear Calc 83.44 Est GFR (MDRD) Af Amer 104 Est GFR (MDRD) Non-Af 86 BUN/Creatinine Ratio 12.8 Glucose 94 Calcium 9.3 Serum , Qual NEGATIVE Blood Type A POSITIVE Antibody Screen NEGATIVE <Dr. Wero Tijerina MD - Last Filed: 10/27/23 20:23> MDM MDM Narrative Medical decision making narrative: I have personally performed a face to face assessment of the patient and have reviewed the ZHOU Note. I performed a substantive portion of the visit including all aspects of the following. My langley findings include: History is 23-year-old female Ab1 with that being a miscarriage in August around 6 weeks. Thought she completed miscarriage was not having any problems. She had a normal menstrual period in September. A week ago on Saturday she started having vaginal bleeding thought was normal menstrual period it continued on Saturday and got heavier today. She denies any bleeding disorders. She has had mild bruising lately. And a couple nosebleeds. She is on no medications and no blood thinners. There is no family history of bleeding disorders. She denies any discharge or fever. No recent illness. She did have care with her first trimester miscarriage at the [facility]. She has never had any issues like this before. Exam is [well-appearing 23-year-old female. Vital signs stable afebrile. Significant other bedside. H EENT exam unremarkable. Neck nontender. Lungs clear. Heart regular rhythm. Rate about 110. No murmur. Abdomen soft nontender. Normal bowel sounds no peritoneal signs. No uterine or suprapubic tenderness. Moving all 4 extremities. Calves are nontender without edema. Minimal bruising on her left proximal thigh. No significant hematoma. Very small bruise. Neurologically she is awake and alert. No focal motor deficits. Benign exam.] Medical Decision Making [23-year-old with a miscarriage in August. Heavier vaginal bleeding. Screening labs will be obtained. Pelvic exam.] Other additions or changes: [None] History & Record Review Discussion w/independent historian: Patient and Family Additional record(s) reviewed:: Prior inpatient record, Prior outpatient record, Prior ED visit and Prior labs Lab Data Attestation: I reviewed the patient's lab results. Lab results narrative: CBC shows a white count 8. H&H 14.7 and 43. Platelets 296. This is consistent with prior labs. Labs: Laboratory Results - last 24 hr 10/27/23 10/27/23 20:12 20:34 WBC 8.6 RBC 4.48 Hgb 14.7 Hct 43.6 MCV 97.3 MCH 32.8 H MCHC 33.7 RDW Std Deviation 47.8 H RDW Coeff of [place] 13.4 Plt Count 296 MPV 9.0 Immature Gran % (Auto) 0.200 Neut % (Auto) 71.5 H Lymph % (Auto) 23.4 [place] % (Auto) 3.9 Eos % (Auto) 0.2 Baso % (Auto) 0.8 Absolute Neuts (auto) 6.1 Absolute Lymphs (auto) 2.00 Nucleated RBC % 0 Sodium 139 Potassium 3.7 Chloride 109 H Carbon Dioxide 21.0 Anion Gap 9 BUN 11 Creatinine 0.86 Estim Creat Clear Calc 83.44 Est GFR (MDRD) Af Amer 104 Est GFR (MDRD) Non-Af 86 BUN/Creatinine Ratio 12.8 Glucose 94 Calcium 9.3 Serum , Qual NEGATIVE Blood Type A POSITIVE Antibody Screen NEGATIVE Discharge Plan Triage Chief Complaint: Vag Bleeding ED Midlevel Provider: Cathie Lopez ED Provider: Wero Tijerina Dx/Rx/DC Orders Clinical Impression: Dysfunctional uterine hemorrhage Instructions: ED Dysfunctional Uterine Bleeding Prescriptions: New norethindrone acetate 5 mg tablet 5 mg PO TID PRN MDD 15 mg PRN (Reason: Vaginal bleeding) Qty: 20 0RF Rx Instructions: Start the medication 5 mg 3 times a day. As the bleeding slows down the PRIMARY SPECIAL EDUCATION TEACHER office will then decrease the medication to twice a day and then daily. They will coordinate the change in the medication as your bleeding slows. No Action ondansetron [Zofran ODT] 4 mg Tablet,Disintegrating 4 mg PO Q6H PRN (Reason: Nausea) lamotrigine 100 mg Tablet 100 mg PO QHS acetylcysteine 600 mg Tablet 600 mg PO BID doxylamine-pyridoxine (vit B6) [Diclegis] 10-10 mg tablet,delayed release (DR/EC) 1 tab PO BID Qty: 14 0RF cephalexin 500 mg capsule 500 mg PO TID 7 Days Qty: 20 0RF Primary Care Provider: Nguyễn Kirkland Referrals: Nguyễn Kirkland MD [Primary Care Provider] - Twila Rodriguez MD [Med Staff - Active Staff] - As soon as possible Activity Restrictions/Additional Instructions: Call the [facility] PRIMARY SPECIAL EDUCATION TEACHER office Saturday. I spoke with their physician on-call deepti Rodriguez. They will follow you up in the office. They will coordinate the medication that was started you on Aygestin depending on how you are bleeding is slowing down. You will start taking the medication 3 times a day. Pelvic rest. Just take it easy at home the next several days. Plenty of fluids to replace the blood loss. If you start having heavier vaginal bleeding or feeling worse return to the emergency department. Print Language: Moroccan Disposition Disposition: Home, Self Care
[2023-10-27 20:18] LABS: Absolute Neutrophil Count 6.1 X10^3/uL (2.0-7.7); Basophil# 0.07 X10^3/uL; Basophil% 0.8 % (0-1); Eosinophil# 0.02 X10^3/uL; Eosinophils% 0.2 % (0-5); Hematocrit 43.6 % (37-47); Hemoglobin 14.7 g/dL (12.0-15.0); Lymphocyte % 23.4 % (19-41); Mean Corp Hgb Conc 33.7 g/dL (32-36); Mean Corpuscular Hgb 32.8 pg (27.0-32.0); Mean Corpuscular Volume 97.3 fL (81-99); Monocyte# 0.33 X10^3/uL; Monocyte% 3.9 % (0-10); NRBC Flagged by Analyzer 0 % (0-5); Neutrophil # 6.11 X10^3/uL (2.7-7.7); Neutrophil % 71.5 % (47-70); Platelet Count 296 K/mm3 (150-450); RBC Distribution Width CV 13.4 % (11.6-14.6); RBC Distribution Width SD 47.8 fl (35.1-43.9); Red Blood Count 4.48 M/mm3 (4.2-5.4); White Blood Count 8.6 K/mm3 (4.4-11.0)
--- NOTE | 2023-10-27 20:27 | US_ITS ---
INDICATION: heavy bleeding EXAMINATION: Ultrasound US Transvaginal Non-OB TECHNIQUE: Transvaginal (for optimal evaluation of the adnexa) pelvic ultrasound was performed. Grayscale and color flow Doppler evaluation of the adnexa. COMPARISON: No relevant prior comparison study available FINDINGS: UTERUS: Anteverted. The uterus measures 8.5 x 4.2 x 3.4 cm. There is no uterine mass. The endometrial stripe measures 0.5 cm in AP diameter which is within normal limits. Distention of the endometrial canal with hyperechoic structure measuring 1.2 x 0.8 x 1.1 cm. This changes in positioning through the exam, favoring a blood clot. There is no Doppler vascularity. RIGHT OVARY: 4.2 x 2.7 x 2.4 cm. Non-enlarged, normal echogenicity. LEFT OVARY: 2.5 x 2.9 x 2 cm. Non-enlarged, normal echogenicity. FREE FLUID: Small volume. US/Transvaginal Non- IMPRESSION: Material within the endometrial canal favoring a blood clot. No pelvic mass. Electronically Signed: Dragan Wolf MD at 22:53 EDT Reading Location ID and State: [facility] Tel , Service support ,
[2023-10-27] MEDS: 0.9% Normal Saline (1000mL) 1,000 ML 999 ML IV (20:38)
[2023-10-27 20:50] LABS: Internal QC Validated? YES +Cl - CLEAR BKGD; Pregnancy, Serum, hCG Quali. NEGATIVE Negative
[2023-10-27 20:55] LABS: Anion Gap 9 (5-15); BUN 11 mg/dL (7-18); BUN/Creat Ratio 12.8 RATIO (10-20); Calcium,Total 9.3 mg/dL (8.5-10.1); Chloride 109 mmol/L (98-107); Creatinine, Serum 0.86 mg/dL (0.55-1.02); EST Glomerular Filtration Rate 86 mL/min (>60); Est Glom Filt Rate - Afr Amer 104 mL/min (>60); Estimated Creatinine Clearance 83.44 ml/min; Glucose 94 mg/dL (74-106); Potassium 3.7 mmol/L (3.5-5.1); Sodium Level 139 mmol/L (136-145)
[2023-10-27 20:59] VITALS: BP 137/86; PULSE 98; RESP 8; O2SAT 98
[2023-10-27 21:28] VITALS: BP 129/80; PULSE 99; RESP 13; O2SAT 99
[2023-10-27] MEDS: MEDROXYPROGESTERONE ACETATE 10 MG TABLET PO (22:02)
[2023-10-27 22:28] VITALS: BP 128/81; PULSE 97; RESP 19; O2SAT 97
[2023-10-27 23:00] VITALS: BP 123/78; PULSE 92; RESP 14; TEMP 36.8; O2SAT 98
== END 2023-10-27 23:13 | disposition home or self-care (01) ==
PROVIDERS: Physician Assistant; Emergency Provider Emergency Medicine; PCP Family Medicine; Visit Provider Emergency Medicine
DX: N93.8 Other specified abnormal uterine and vaginal bleeding (principal); S70.12XA Contusion of left thigh, initial encounter; X58.XXXA Exposure to other specified factors, initial encounter; F17.290 Nicotine dependence, other tobacco product, uncomplicated; Z79.899 Other long term (current) drug therapy
CPT/HCPCS: 76830; 80048; 84703; 85025; 86850; 86900; 86901; 96360; 99283; J7030; A4216

== ENCOUNTER 2023-12-30 18:31 | Emergency (ER) | payer OTHER, SELFPAY ==
[2023-12-30 18:32] VITALS: BP 87/77; PULSE 102; RESP 18; TEMP 36.8; O2SAT 97; BMI 22.9
[2023-12-30 19:29] LABS: Absolute Lymphocyte Count 1.27 X10^3/uL (0.83-4.51); Basophil# 0.04 X10^3/uL; Basophil% 0.3 % (0-1); Eosinophil# 0.35 X10^3/uL; Eosinophils% 2.9 % (0-5); Hematocrit 40.9 % (37-47); Hemoglobin 13.9 g/dL (12.0-15.0); Lymphocyte # 1.27 X10^3/ul (0.83-4.51); Lymphocyte % 10.4 % (19-41); Mean Corpuscular Hgb 32.9 pg (27.0-32.0); Mean Corpuscular Volume 96.7 fL (81-99); Mean Platelet Vol. 9.3 fl (6.2-12.0); Monocyte# 0.53 X10^3/uL; Monocyte% 4.3 % (0-10); NRBC Flagged by Analyzer 0 % (0-5); Neutrophil # 10.01 X10^3/uL (2.7-7.7); Neutrophil % 81.8 % (47-70); POSITIVE MORPHOLOGY YES; Platelet Count 271 K/mm3 (150-450); RBC Distribution Width CV 12.3 % (11.6-14.6); RBC Distribution Width SD 44.1 fl (35.1-43.9); Red Blood Count 4.23 M/mm3 (4.2-5.4); White Blood Count 12.2 K/mm3 (4.4-11.0)
[2023-12-30 19:33] LABS: Red Blood Cells-Urine 0 SEEN /hpf (0-5)
[2023-12-30 19:34] LABS: Differential Indicated SCAN CRITERIA MET
[2023-12-30 19:37] LABS: Color, Urine Yellow (Yellow); Glucose, Dipstick Normal (Normal); Leukocyte Esterase-Dipstick 25 /ul (Negative); Nitrite-Dipstick Negative (Negative); Occult Blood-Urine Negative /ul (Negative); Protein-Dipstick 30 mg/dl (Negative); Urine Bilirubin Dipstick Negative (Negative); Urine Clarity Clear (Clear); Urine Urobilinogen Normal (Normal)
[2023-12-30 19:43] LABS: Internal QC Validated? YES +Cl - CLEAR BKGD; Pregnancy, Serum, hCG Quali. POSITIVE Negative
[2023-12-30 19:48] LABS: Ketone-Dipstick 150 mg/dl (Negative)
[2023-12-30 19:48] LABS: ALB/GLOB Ratio 1.3 RATIO (0.9-2.4); AST(SGOT) 13 U/L (15-37); Alanine Aminotransfer ALT/SGPT 24 U/L (13-56); Albumin, Serum 4.4 g/dL (3.2-5.0); Alkaline Phosphatase 64 U/L (45-117); Anion Gap 9 (5-15); BUN 12 mg/dL (7-18); BUN/Creat Ratio 15.4 RATIO (10-20); Calcium,Total 9.7 mg/dL (8.5-10.1); Chloride 104 mmol/L (98-107); Creatinine, Serum 0.78 mg/dL (0.55-1.02); EST Glomerular Filtration Rate 96 mL/min (>60); Est Glom Filt Rate - Afr Amer 116 mL/min (>60); Globulin 3.4 g/dL (2.2-4.2); Glucose 97 mg/dL (74-106); Potassium 3.8 mmol/L (3.5-5.1); Protein, Total 7.8 g/dL (6.4-8.2); Sodium Level 136 mmol/L (136-145)
--- NOTE | 2023-12-30 19:49 | ED.VIS.GI ---
HPI HPI - GI History of Present Illness Chief Complaint: Nausea/Vomiting Informant: patient Nausea/Vomiting/Emesis GI Symptom: Positive for Nausea and Vomiting Onset: Days Quality: Positive for Nonbilious Severity: Moderate Diarrhea/Melena/Hematochezia GI Symptom: Negative for Diarrhea, Melena or Hematochezia Associated Symptoms Associated Symptoms: Negative for Dysuria, Frequency, Hematuria or Urgency Narrative Narrative: 23-year-old female G2. P0 Ab1 with that being a miscarriage around 6 weeks. Just found out she was again December 11. Since Saturday she has had nausea and vomiting. No diarrhea. No dysuria. No fever. No abdominal or pelvic pain. No vaginal bleeding. [facility] she is having increasing quants. They do not know at this time how far along she is because she had a miscarriage and really never had a normal menstrual period after that since being here. Prior similar symptoms: No Recent Illness/Hospitalization: No PFSH PFSH Medical History no medical history no medical history Home Medications ?Medication ?Instructions ?Recorded ?Last Taken ?Type acetylcysteine 600 mg tablet 600 mg PO BID 06/25/21 Unknown History lamotrigine 100 mg tablet 100 mg PO QHS 06/25/21 Unknown History ondansetron 4 mg disintegrating 4 mg PO Q6H PRN Nausea 06/25/21 Unknown History tablet cephalexin 500 mg capsule 500 mg PO TID 7 days #20 caps 07/15/23 Unknown Rx doxylamine 10 mg-pyridoxine (vit 1 tab PO BID #14 tabs 07/15/23 Unknown Rx B6) 10 mg tablet,delayed release (Diclegis) norethindrone acetate 5 mg tablet 5 mg PO TID PRN PRN Vaginal 10/27/23 Unknown Rx bleeding #20 tabs ondansetron 4 mg disintegrating 4 mg PO Q6H PRN nausea and 12/30/23 Unknown Rx tablet vomiting #14 tabs Allergy/AdvReac Type Severity Reaction Status Date / Time No Known Allergies Allergy Verified 12/30/23 18:35 Social History Smoking Status: Former smoker ROS ROS ED ROS Narrative Nausea and vomiting. . Constitutional Constitutional ED: Denies chills or fever(s) ENT ENT ED: Denies ear pain Cardiovascular Cardiovascular: Denies chest pain Respiratory/Chest Respiratory/Chest: Denies cough or dyspnea Gastrointestinal Gastrointestinal: Reports nausea and vomiting; Denies abdominal pain, constipation, diarrhea or melena Genitourinary Genitourinary ED: Denies dysuria or hematuria Musculoskeletal Musculoskeletal: Denies arthralgias Integumentary Denies abscess Neurologic Neurologic: Denies headache(s) Psychiatric Psychiatric: Denies anxiety or depression Hematologic/Lymphatic Hematologic/Lymphatic: Denies easy bleeding Allergic/Immunologic Allergic/Immunologic ED: Denies mouth swelling EXAM Physical Exam Narrative Exam Narrative: 24-year-old female no acute distress vital signs are stable she is hypotensive at 87/77. But she sitting upright in bed tolerating it well. H EENT exam unremarkable except mildly dry mucous members. Neck nontender no lymphadenopathy. Lungs clear to auscultation. Heart regular rhythm rate of 102 no murmur. Chest wall ribs nontender. Abdomen soft nontender. Moving all 4 extremities. Nontender no edema. Back nontender. She is awake and alert. No focal motor deficits. Const Vital Signs: 12/30/23 18:32 12/30/23 20:16 Temperature 98.2 F Temperature Source Temporal Pulse Rate 102 H 79 Respiratory Rate 18 Blood Pressure 87/77 L 112/67 Blood Pressure Mean 80 82 Pulse Ox 97 Oxygen Delivery Method Room Air Positive well nourished and well developed; Negative for obese, cachectic, contractures or unkempt General Appearance ED: well developed and NAD; Negative for unkempt, cachectic, contractures or pallor Nutritional Appearance: Negative for cachectic or obese HEENT Reports dry mucous membranes; Denies moist mucous membranes normocephalic and atraumatic; Negative for trauma or tenderness Mouth ED: Yes dry mucous membranes Mouth: dry mucous membranes Eyes PERRL and EOMs intact bilaterally General Eye ED: Negative for pale conjunctiva or scleral icterus Neck no lymphadenopathy, supple and no JVD General: Negative for tenderness Carotids: Negative for other Lymph Lymphatic: Negative for other Resp normal respiratory effort and clear to auscultation bilaterally Effort and Inspection: Negative for respiratory distress Auscultation: Negative for rales, rhonchi, wheezes, diminished lung sounds or other Cardio regular rhythm, S1 normal heart sound, S2 normal heart sound and no murmurs; Negative for regular rate Rate: tachycardic Rhythm: Negative for abnormal rhythm GI non-tender, non-distended and no masses Inspection: Negative for abdominal distention Auscultation: normoactive bowel sounds Palpation: soft; Negative for tender, guarding or rebound tenderness present Back/Spine no CVA tenderness General Back: Negative for CVA tenderness Cervical Spine: Negative for cervical spine tenderness Thoracic Spine / Upper Back: Negative for thoracic spinal tenderness Lumbar Spine / Lower Back: Negative for lumbar spinal tenderness Coccyx: Negative for other Extremity General Extremety ED: Negative for edema, tenderness or other findings General Extremity: Negative for edema or other findings Neuro CN's II-XII intact bilaterally and moves all extremities Sensorium / Orientation: alert, oriented to person, oriented to place and oriented to time; Negative for orientation impaired or confused Motor Exam: strength 5/5 throughout; Negative for general weakness or strength abnormal Psych mental status grossly normal and thought process normal Appearance: Negative for unkempt Attitude: No agitated Mood & Affect: Negative for depressed, anxious or tearful Skin no wounds General Skin Exam: Negative for jaundice or pallor Lesions: no lesions Rashes: no rashes Trauma: Negative for abrasion Nails: Negative for discolored MDM MDM MDM Narrative Medical decision making narrative: 23-year-old female first trimester with nausea vomiting. Exam benign. Suspect dehydration. Screening labs being obtained. UA. Should be treated with 2 L normal saline and Zofran for nausea with a p.o. fluid challenge. She is having no abdominal pain or bleeding at elderly she needs any imaging or ultrasound of her abdomen or pelvis. Repeat exam patient doing well at 9 PM. She received IV fluids. Currently is normotensive. She is able to drink p.o. fluids. She will be discharged to home with Zofran as needed for nausea. Fluids and rest. Follow-up with her ON SITE MANAGER group. Turn if worse. History & Record Review Discussion w/independent historian: Patient Additional record(s) reviewed:: Prior inpatient record, Prior outpatient record, Prior ED visit and Prior labs Lab Data Attestation: I reviewed the patient's lab results. Lab results narrative: CBC shows a white count 12.2. H&H 13.9 and 40. Platelets 271. Electrolytes unremarkable gap 9. Normal BUN of 12 creatinine 0.78. Liver enzymes normal. Serum test positive. Urine shows dehydration with ketones. There is no nitrates. It is a contaminated specimen with 10-25 epithelial cells there is only 5-10 white cells. No red cells. 1+ bacteria. She is having no urinary symptoms I do not think this needs to be treated. Labs: Laboratory Results - last 24 hr 12/30/23 12/30/23 19:19 19:26 WBC 12.2 H RBC 4.23 Hgb 13.9 Hct 40.9 MCV 96.7 MCH 32.9 H MCHC 34.0 RDW Std Deviation 44.1 H RDW Coeff of [place] 12.3 Plt Count 271 MPV 9.3 Immature Gran % (Auto) 0.300 Neut % (Auto) 81.8 H Lymph % (Auto) 10.4 [place] % (Auto) 4.3 Eos % (Auto) 2.9 Baso % (Auto) 0.3 Absolute Neuts (auto) 10.0 H Absolute Lymphs (auto) 1.27 Nucleated RBC % 0 Differential Comment SCANNED Sodium 136 Potassium 3.8 Chloride 104 Carbon Dioxide 23.0 Anion Gap 9 BUN 12 Creatinine 0.78 Estim Creat Clear Calc 92.00 Est GFR (MDRD) Af Amer 116 Est GFR (MDRD) Non-Af 96 BUN/Creatinine Ratio 15.4 Glucose 97 Calcium 9.7 Total Bilirubin 1.00 AST 13 L ALT 24 Alkaline Phosphatase 64 Total Protein 7.8 Albumin 4.4 Globulin 3.4 Albumin/Globulin Ratio 1.3 Serum , Qual POSITIVE H Urine Color Yellow Urine Clarity Clear Urine pH 6.0 Ur Specific [place] 1.030 Urine Protein 30 H Urine Glucose (UA) Normal Urine Ketones 150 A* Urine Occult Blood Negative Urine Nitrite Negative Urine Bilirubin Negative Urine Urobilinogen Normal Ur Leukocyte Esterase 25 H Urine RBC 0 SEEN Urine WBC 5-10 SEEN Ur Squamous Epith Cells 10-25 SEEN Urine Bacteria 1+ Urine Mucus 3+ Discharge Plan Triage Chief Complaint: Nausea/Vomiting ED Provider: Wero Tijerina Dx/Rx/DC Orders Clinical Impression: First trimester , Nausea & vomiting, Acute dehydration Instructions: ED Vomiting (Adult) Prescriptions: New ondansetron 4 mg tablet,disintegrating 4 mg PO Q6H PRN (Reason: nausea and vomiting) Qty: 14 0RF No Action ondansetron [Zofran ODT] 4 mg Tablet,Disintegrating 4 mg PO Q6H PRN (Reason: Nausea) lamotrigine 100 mg Tablet 100 mg PO QHS acetylcysteine 600 mg Tablet 600 mg PO BID norethindrone acetate 5 mg tablet 5 mg PO TID PRN MDD 15 mg PRN (Reason: Vaginal bleeding) Qty: 20 0RF Rx Instructions: Start the medication 5 mg 3 times a day. As the bleeding slows down the ON SITE MANAGER office will then decrease the medication to twice a day and then daily. They will coordinate the change in the medication as your bleeding slows. doxylamine-pyridoxine (vit B6) [Diclegis] 10-10 mg tablet,delayed release (DR/EC) 1 tab PO BID Qty: 14 0RF cephalexin 500 mg capsule 500 mg PO TID 7 Days Qty: 20 0RF Primary Care Provider: Nguyễn Kirkland Referrals: Nguyễn Kirkland MD [Primary Care Provider] - Cata Calvert MD [Med Staff - Active Staff] - As Needed Activity Restrictions/Additional Instructions: Plenty of fluids and rest. Zofran as needed for nausea. Return if intractable vomiting or feeling worse. Follow-up with your ON SITE MANAGER group for further evaluation. Print Language: Dutch Disposition Disposition: Home, Self Care
[2023-12-30 19:52] LABS: Bacteria 1+ /hpf (None Seen); Mucous, Urine 3+ /hpf (<or=2+); Squamous Epithelial Cells - UA 10-25 SEEN /hpf (5-10); White Blood Cells 5-10 SEEN /hpf (0-5)
[2023-12-30 19:55] LABS: Differential Comment SCANNED
[2023-12-30] MEDS: Ondansetron 4 MG/2 ML Vial IV ×2 (20:01→21:50)
[2023-12-30] MEDS: 0.9% Normal Saline (1000mL) 1,000 ML 1000 ML IV ×2 (20:04→20:06)
[2023-12-30 20:16] VITALS: BP 112/67; PULSE 79
[2023-12-30 21:51] VITALS: BP 121/74; PULSE 82; RESP 16; TEMP 36.8; O2SAT 99
== END 2023-12-30 21:59 | disposition home or self-care (01) ==
PROVIDERS: Emergency Provider Emergency Medicine; PCP Family Medicine; Visit Provider Emergency Medicine
DX: O21.9 Vomiting of pregnancy, unspecified (principal); O99.281 Endocrine, nutritional and metabolic diseases complicating pregnancy, first trimester; E86.0 Dehydration; Z87.891 Personal history of nicotine dependence; Z3A.00 Weeks of gestation of pregnancy not specified
CPT/HCPCS: 80053; 81001; 84703; 85025; 96361; 96374; 96376; 99283; J7030; A4216; J2405

== ENCOUNTER 2024-05-30 19:09 | Emergency (ER) | payer OTHER, SELFPAY ==
[2024-05-30 19:10] VITALS: BP 133/112; PULSE 99; RESP 16; TEMP 36.3; O2SAT 99; BMI 28.3
--- NOTE | 2024-05-30 20:02 | ED.VIS.DYS ---
HPI <BRIAN Hubbard - Last Filed: 05/30/24 20:13> History of Present Illness Chief Complaint: Shortness of Breath Narrative Narrative: Patient is 23-year-old female, patient is currently 26 weeks , patient states that for the last 5 to 6 days, she is been having worsening cough, congestion, fever and chills. She states she had some nausea with only 1 episode of vomiting. She states when she is sitting she feels fine however when she gets up she does feel more dizzy however she had not had any loss of conscious. Patient states that she called her TRY OUT PERSON who told her to the emergency department. PFSH <BRIAN Hubbard - Last Filed: 05/30/24 20:13> [facility] Medical History (Updated 05/30/24 @ 22:[address] Rhys Valenzuela, DO) SOB (shortness of breath) Home Medications ?Medication ?Instructions ?Recorded ?Last Taken ?Type acetylcysteine 600 mg tablet 600 mg PO BID 06/25/21 Unknown History lamotrigine 100 mg tablet 100 mg PO QHS 06/25/21 Unknown History ondansetron 4 mg disintegrating 4 mg PO Q6H PRN Nausea 06/25/21 Unknown History tablet cephalexin 500 mg capsule 500 mg PO TID 7 days #20 caps 07/15/23 Unknown Rx doxylamine 10 mg-pyridoxine (vit 1 tab PO BID #14 tabs 07/15/23 Unknown Rx B6) 10 mg tablet,delayed release (Diclegis) norethindrone acetate 5 mg tablet 5 mg PO TID PRN PRN Vaginal 10/27/23 Unknown Rx bleeding #20 tabs ondansetron 4 mg disintegrating 4 mg PO Q6H PRN nausea and 12/30/23 Unknown Rx tablet vomiting #14 tabs cephalexin 500 mg capsule 500 mg PO TID 7 days #21 CAPSULES 05/30/24 Unknown Rx Allergy/AdvReac Type Severity Reaction Status Date / Time No Known Allergies Allergy Verified 05/30/24 19:10 Social History Smoking Status: Former smoker ROS <BRIAN Hubbard - Last Filed: 05/30/24 20:13> ROS ED ROS Narrative Constitutional: Negative for weight loss, weakness. Positive fever and chills Eyes: Negative for vision loss, vision change, double vision ENT: Negative for any sore throat, ear pain,. Positive for congestion Cardiovascular: Negative for any chest pain, tightness, palpitations Respiratory: Negative for any sputum production, hemoptysis, dyspnea, dyspnea on exertion, orthopnea. Positive for cough Gastrointestinal: Negative for any abdominal pain, nausea, vomiting, diarrhea, constipation, blood in stool, blood in vomit : Negative for any urinary frequency, dysuria, retention, blood in urine Muscle skeletal: Negative for any neck pain, back pain Neurological: Negative for any headache, syncope. Positive for dizziness Skin: Negative for any rashes, itching, abrasions, lacerations Psychiatric: Negative for any depression, anxiety, stress, suicidal ideation, homicidal ideation Hematologic: Negative for any excessive bruising, easy bleeding EXAM <BRIAN Hubbard - Last Filed: 05/30/24 20:13> Physical Exam Narrative Exam Narrative: Vital signs reviewed. HEET: Head normocephalic atraumatic, TMs clear bilaterally. Posterior pharynx is clear, moist mucous membranes. Nares clear bilaterally. Neck: Supple with no lymphadenopathy or tenderness. No signs of meningismus. Cardiac: Regular rate and rhythm no murmurs gallops or rubs, equal peripheral pulses bilaterally. Respiratory: Lungs clear to auscultation bilaterally. No chest tenderness. Abdomen: Soft, nontender, nondistended. No abdominal bruit or pulsatile masses. No hepatosplenomegaly Extremities: No peripheral edema, no signs of gross trauma or deformity. Active full range of motion of all extremities. Neuro: Cranial nerves II through XII intact, no focal neurological deficits. Skin: Clean dry and intact with no rash, purpura, petechiae, vesicles or pustules. Backs/flank: No CVA tenderness, no midline spinal tenderness, no deformity. Psych: Normal mood and affect. No SI, HI or acute psychosis. Const Vital Signs: 05/30/24 19:10 05/30/24 21:09 05/30/24 22:26 Temperature 97.3 F L Temperature Source Temporal Pulse Rate 99 80 Respiratory Rate 16 16 Blood Pressure 133/112 H 125/69 H Blood Pressure Mean 119 87 Pulse Ox 99 98 Oxygen Delivery Method Room Air 05/30/24 22:36 Temperature 97.3 F L Temperature Source Pulse Rate 80 Respiratory Rate 16 Blood Pressure 125/69 H Blood Pressure Mean 87 Pulse Ox 98 Oxygen Delivery Method Positive well nourished and well developed General Appearance ED: well developed <Dr. Rhys Valenzuela DO - Last Filed: 05/31/24 00:40> Physical Exam Const Vital Signs: 05/30/24 19:10 05/30/24 21:09 05/30/24 22:26 Temperature 97.3 F L Temperature Source Temporal Pulse Rate 99 80 Respiratory Rate 16 16 Blood Pressure 133/112 H 125/69 H Blood Pressure Mean 119 87 Pulse Ox 99 98 Oxygen Delivery Method Room Air 05/30/24 22:36 Temperature 97.3 F L Temperature Source Pulse Rate 80 Respiratory Rate 16 Blood Pressure 125/69 H Blood Pressure Mean 87 Pulse Ox 98 Oxygen Delivery Method MDM <BRIAN Hubbard - Last Filed: 05/30/24 20:13> [facility] Lab Data Labs: Laboratory Results - last 24 hr 05/30/24 20:10 Urine Color Yellow Urine Clarity Sl. Cloudy Urine pH 7.0 Ur Specific [place] 1.010 Urine Protein 30 H Urine Glucose (UA) Normal Urine Ketones Negative Urine Occult Blood Negative Urine Nitrite Negative Urine Bilirubin Negative Urine Urobilinogen 1 H Ur Leukocyte Esterase Negative Urine RBC 0-5 SEEN Urine WBC 5-10 SEEN Ur Squamous Epith Cells 25-50 SEEN Urine Bacteria 2+ Urine Mucus 0 SEEN Radiography Diagnostic Testing: Clinical Impression(s) from Imaging Studies Chest X-Ray 05/30/24 20:10 IMPRESSION: No evidence of active intrathoracic disease. Electronically Signed: Kierra Gee MD at 22:15 [facility] , Treatment and Re-Evaluation :: Differential diagnosis includes however is not limited to: COVID-19, influenza, RSV, other viral-like illness, UTI Patient appears generally well, vital signs are stable, patient is nontoxic-appearing. Presenting to the emergency department for complaints of generalized cough, congestion, feeling unwell. Physical examination yields no red flag signs. Patient will receive a heart tones. Patient received a chest x-ray as well as a COVID-19 influenza RSV. All radiologic examinations were read, reviewed by the emergency department attending. From these reads, a plan of care will be put in place. Urinalysis will be ordered. <Dr. Rhys Valenzuela, DO - Last Filed: 05/31/24 00:40> [facility] MDM Narrative Medical decision making narrative: Supervisory Physician Note Patient was seen and examined with the Advanced Practice Provider. Nursing notes and vital signs have been reviewed. Pertinent old records have been reviewed. I agree with the essential elements of the ZHOU's history, physical exam, assessment, and plan. The differential diagnosis and management options were discussed with the ZHOU. I participated in determining and agree with the management, procedures, final impression and disposition as documented. See changes noted by me. Please see addendum or separate note for any additional details. 23-year-old female who is 26 weeks presents for flulike/viral type symptoms. Denies any shortness of breath, chest pain, abdominal pain, dysuria. Physical exam is unremarkable. No clinical signs of dehydration. Patient tolerating drinking water in the room. Suspect viral illness however pneumonia and UTI in the differential. I do not think any laboratory workup is needed at this time. Patient is in agreement to this. heart tones were obtained and normal at 140. Patient denies any vaginal bleeding or abdominal cramping. Good movement. UA shows bacteria but is contaminated with large amounts of squamous epithelial cells. Will send for culture. However given patient's bacteriuria in we will treat with Keflex. Patient given first dose here. She will be discharged home on Keflex 3 times daily x 7 days for asymptomatic bacteriuria. Chest x-ray was personally reviewed by me, ED physician. No pneumonia, effusion, cardiomegaly, pneumothorax. Patient's vitals are stable. She was mildly hypertensive on presentation however this quickly resolved. I suspect that this was likely to her not feeling well. Patient was educated on all her results. She is negative for flu, COVID, RSV. Suspect other viral illness. Follow-up with PCP and TRY OUT PERSON. Return precautions explained. She confirmed understanding of the plan. Impression: 1. Viral illness 2. Second trimester Lab Data Labs: Laboratory Results - last 24 hr 05/30/24 20:10 Urine Color Yellow Urine Clarity Sl. Cloudy Urine pH 7.0 Ur Specific [place] 1.010 Urine Protein 30 H Urine Glucose (UA) Normal Urine Ketones Negative Urine Occult Blood Negative Urine Nitrite Negative Urine Bilirubin Negative Urine Urobilinogen 1 H Ur Leukocyte Esterase Negative Urine RBC 0-5 SEEN Urine WBC 5-10 SEEN Ur Squamous Epith Cells 25-50 SEEN Urine Bacteria 2+ Urine Mucus 0 SEEN Radiography Diagnostic Testing: Clinical Impression(s) from Imaging Studies Chest X-Ray 05/30/24 20:10 IMPRESSION: No evidence of active intrathoracic disease. Electronically Signed: Kierra Gee MD at 22:15 EST , Discharge Plan Triage Chief Complaint: Shortness of Breath ED Midlevel Provider: Dewayne Gutierrez ED Provider: Rhys Valenzuela Dx/Rx/DC Orders Clinical Impression: Viral syndrome Instructions: ED URI, Viral, No Abx (Adult) Prescriptions: New cephalexin 500 mg capsule 500 mg PO TID 7 Days Qty: 21 0RF No Action ondansetron [Zofran ODT] 4 mg Tablet,Disintegrating 4 mg PO Q6H PRN (Reason: Nausea) lamotrigine 100 mg Tablet 100 mg PO QHS acetylcysteine 600 mg Tablet 600 mg PO BID norethindrone acetate 5 mg tablet 5 mg PO TID PRN MDD 15 mg PRN (Reason: Vaginal bleeding) Qty: 20 0RF Rx Instructions: Start the medication 5 mg 3 times a day. As the bleeding slows down the TRY OUT PERSON office will then decrease the medication to twice a day and then daily. They will coordinate the change in the medication as your bleeding slows. doxylamine-pyridoxine (vit B6) [Diclegis] 10-10 mg tablet,delayed release (DR/EC) 1 tab PO BID Qty: 14 0RF cephalexin 500 mg capsule 500 mg PO TID 7 Days Qty: 20 0RF ondansetron 4 mg tablet,disintegrating 4 mg PO Q6H PRN (Reason: nausea and vomiting) Qty: 14 0RF Primary Care Provider: Nguyễn Kirkland Referrals: Nguyễn Kirkland MD [Primary Care Provider] - 3-5 Days Activity Restrictions/Additional Instructions: Follow-up with your primary care physician as well as your TRY OUT PERSON. Return back to the ED if symptoms change or worsen. Print Language: Malay Disposition Disposition: Home, Self Care Discharge Date/Time: 05/30/24 22:38
--- NOTE | 2024-05-30 20:10 | RAD_ITS ---
INDICATION: cough -- Preg 26 wks EXAMINATION/TECHNIQUE: X-RAY - XR Chest 2 Views COMPARISON: No relevant prior comparison study available FINDINGS: LINES/DEVICES: None. LUNGS: No consolidation. No pneumothorax. MEDIASTINUM: Unremarkable. CARDIAC SILHOUETTE: Not enlarged. BONES AND SOFT TISSUES: No acute abnormalities. RAD/Chest PA and Lateral IMPRESSION: No evidence of active intrathoracic disease. Electronically Signed: Kierra Gee MD at 22:15 EST ,
[2024-05-30 20:16] LABS: Mucous, Urine 0 SEEN /hpf (<or=2+)
[2024-05-30 20:17] LABS: Color, Urine Yellow (Yellow); Glucose, Dipstick Normal (Normal); Ketone-Dipstick Negative (Negative); Leukocyte Esterase-Dipstick Negative /ul (Negative); Nitrite-Dipstick Negative (Negative); Occult Blood-Urine Negative /ul (Negative); Protein-Dipstick 30 mg/dl (Negative); Urine Bilirubin Dipstick Negative (Negative); Urine Clarity Sl. Cloudy (Clear); Urine Urobilinogen 1 mg/dl (Normal)
[2024-05-30 20:29] LABS: Bacteria 2+ /hpf (None Seen); Squamous Epithelial Cells - UA 25-50 SEEN /hpf (5-10)
[2024-05-30 20:30] LABS: Red Blood Cells-Urine 0-5 SEEN /hpf (0-5); White Blood Cells 5-10 SEEN /hpf (0-5)
[2024-05-30 21:09] VITALS: PULSE 80; RESP 16; O2SAT 98
[2024-05-30 22:26] VITALS: BP 125/69
[2024-05-30] MEDS: Cephalexin 250 MG Capsule 500 MG PO (22:30)
[2024-05-30 22:36] VITALS: BP 125/69; PULSE 80; RESP 16; TEMP 36.3; O2SAT 98
== END 2024-05-30 22:38 | disposition home or self-care (01) ==
PROVIDERS: Nurse Practitioner; Emergency Provider Surgery; PCP Family Medicine; Visit Provider Surgery
DX: O98.512 Other viral diseases complicating pregnancy, second trimester (principal); B34.9 Viral infection, unspecified; R06.02 Shortness of breath; O26.892 Other specified pregnancy related conditions, second trimester; R82.71 Bacteriuria; R11.2 Nausea with vomiting, unspecified; Z11.52 Encounter for screening for COVID-19; Z3A.26 26 weeks gestation of pregnancy; Z79.899 Other long term (current) drug therapy; Z87.891 Personal history of nicotine dependence

== ENCOUNTER 2024-08-12 19:20 | Inpatient (IN) | payer OTHER, SELFPAY ==
[2024-08-12 19:42] VITALS: BP 136/76; PULSE 90; PULSE 96; RESP 16; TEMP 37.3; O2SAT 98
[2024-08-12 19:48] VITALS: BMI 29.4
[2024-08-12] MEDS: Lactated Ringers 1,000 ML 50 ML IV (20:00)
[2024-08-12 20:16] LABS: Absolute Lymphocyte Count 1.69 X10^3/uL (0.83-4.51); Absolute Neutrophil Count 7.6 X10^3/uL (2.0-7.7); Basophil# 0.04 X10^3/uL; Basophil% 0.4 % (0-1); Eosinophil# 0.05 X10^3/uL; Eosinophils% 0.5 % (0-5); Hematocrit 29.6 % (37-47); Lymphocyte # 1.69 X10^3/ul (0.83-4.51); Lymphocyte % 16.7 % (19-41); Mean Corp Hgb Conc 33.8 g/dL (32-36); Mean Corpuscular Hgb 29.9 pg (27.0-32.0); Mean Corpuscular Volume 88.4 fL (81-99); Mean Platelet Vol. 9.7 fl (6.2-12.0); Monocyte# 0.69 X10^3/uL; Monocyte% 6.8 % (0-10); NRBC Flagged by Analyzer 0 % (0-5); Neutrophil # 7.64 X10^3/uL (2.7-7.7); Neutrophil % 75.2 % (47-70); Platelet Count 234 K/mm3 (150-450); RBC Distribution Width CV 14.1 % (11.6-14.6); RBC Distribution Width SD 45.1 fl (35.1-43.9); Red Blood Count 3.35 M/mm3 (4.2-5.4); White Blood Count 10.2 K/mm3 (4.4-11.0)
[2024-08-12 20:49] LABS: Syphilis Antibodies Nonreactive (Nonreactive)
--- NOTE | 2024-08-12 20:54 | PCM.HP.OB ---
HPI - General General Date of Admission: 08/12/24 HPI Narrative MALLY VALVERDE, is a 24 F who presents at 39 weeks gestation for an elective induction. Maternal Data Information MAUREEN Calculator Estimated Delivery Date Method Current WG Current Estimate 08/19/24 Manual 39w 0d PFSH [facility] Medical History (Updated 08/12/24 @ 20:58 by Catherine Boggs CNM) Depression Anxiety Gestational diabetes SOB (shortness of breath) Home Medications ?Medication ?Instructions ?Recorded ?Last Taken ?Type lamotrigine 100 mg tablet 100 mg PO QHS depress 06/25/21 Unknown History doxylamine 10 mg-pyridoxine (vit 1 tab PO BID anemia #14 tabs 07/15/23 Unknown Rx B6) 10 mg tablet,delayed release (Diclegis) [id number] 1 mg 1 tab PO DAILY 08/12/24 Unknown History tablet Allergy/AdvReac Type Severity Reaction Status Date / Time No Known Allergies Allergy Verified 08/12/24 19:44 Social History Smoking Status: Former smoker History Elective abortions Hx Para 0 Spontaneous abortions Hx # Term Pregnancies Ectopic pregnancies Hx # Pregnancies Multiple births # of living children NST FHR Rate Baby A Baseline: 140 Variability:: Moderate Accelerations:: 15 x 15 Decelerations:: None NST Reactive:: Yes FHR Category:: Category I Uterine Activity:: TOCO reading every 2-3 minutes ROS Eyes Eyes: Denies blurry vision, change in vision or spots in vision ENT HEENT: Denies dizziness or headache(s) Cardiovascular Cardiovascular: Denies abdominal pain, chest pain or dyspnea Respiratory/Chest Respiratory/Chest: Denies cough, dyspnea, shortness of breath at rest or shortness of breath with exertion Gastrointestinal Gastrointestinal: Denies abdominal pain, diarrhea or vomiting Genitourinary Genitourinary: Denies change in urinary stream, difficulty urinating or dysuria Musculoskeletal Musculoskeletal: Reports none Integumentary Integumentary: Denies rash Neurologic Neurologic: Denies dizziness, headache(s), memory loss or weakness Psychiatric Psychiatric: Reports none Vital Signs Vital Signs Vital Signs: 08/12/24 19:42 08/12/24 19:42 08/12/24 19:42 Temperature Temperature Source Temporal Pulse Rate 96 Respiratory Rate Blood Pressure 136/76 H BP Systolic 136 BP Diastolic 76 Pulse Ox 08/12/24 19:42 08/12/24 19:42 08/12/24 19:42 Temperature Temperature Source Pulse Rate 90 Respiratory Rate 16 Blood Pressure BP Systolic BP Diastolic Pulse Ox 98 08/12/24 19:42 Temperature 99.2 F H Temperature Source Pulse Rate Respiratory Rate Blood Pressure BP Systolic BP Diastolic Pulse Ox Weight Weight: 166 lb 2 oz Body Mass Index (BMI) 29.4 Physical Exam Const alert, oriented x3 and no apparent distress General Appearance: cooperative Orientation / Consciousness: awake Exam Limitations: no limitations HEENT normocephalic Head and Scalp: normal to inspection Eyes General Eye: normal appearance of both eyes Neck full ROM and no lymphadenopathy Lymph Lymphatic: no lymphadenopathy noted Chest inspection of chest normal Resp normal respiratory effort, normal air movement and clear to auscultation bilaterally Effort and Inspection: able to speak in complete sentences and symmetric chest movement Cardio regular rate and regular rhythm GI normal to inspection, nondistended, normoactive bowel sounds Manual OB Exam: presentation cephalic Back/Spine normal ROM Extremity full ROM and no calf tenderness Skin no rashes or lesions noted General Skin Exam: no breakdown Neuro oriented x3 and CN's II-XII intact bilaterally Psych mental status grossly normal and thought process normal Labs Labs Labs: Blood Type A POSITIVE Antibody Screen NEGATIVE Hct 29.6 % (37-47) L Hgb 10.0 g/dL (12.0-15.0) L Syphilis Total Ab Nonreactive (Nonreactive) Assessment & Plan (1) 39 weeks gestation of : (2) Gestational diabetes: COMMENT: Diet controlled (3) Major depression: (4) Rubella non-immune status, antepartum: (5) Elective induction of labor planned: (6) Maternal serum screen positive for trisomy 21: COMMENT: NIPT NEGATIVE (7) Bipolar 1 disorder: PLAN: Plan Admit to labor and delivery GBS negative CE- closed Start Cytotec 25 mcg PO every 4 hours x 6 doses total GDM A1 - monitor blood sugars per policy Pain control as needed Dr. Ng notified of admission and is collaboration physician
[2024-08-12] MEDS: miSOPROStol 25 MCG TABLET PO (21:04)
[2024-08-12 21:26] LABS: Bedside Glucose 82 mg/dL (74-106)
[2024-08-12 21:32] LABS: Bedside Glucose 71 mg/dL (74-106)
[2024-08-12 23:02] VITALS: BP 127/68; PULSE 84; RESP 16; TEMP 37.1; O2SAT 97
[2024-08-13] VITALS (50 sets, daily range): BP systolic 108–153; BP diastolic 56–123; PULSE 72–104; RESP 15–18; TEMP 36.6–37.2; O2SAT 97–100
[2024-08-13] MEDS: fentaNYL 100 MCG/2 ML Ampul IV ×3 (01:36→07:42)
[2024-08-13] MEDS: LACTATED RINGERS 500 ML 999 ML IV (02:45)
[2024-08-13] MEDS: Lactated Ringers 1,000 ML 50 ML IV (02:45)
[2024-08-13 02:48] LABS: Bedside Glucose 70 mg/dL (74-106)
[2024-08-13] MEDS: Oxytocin 15 Units/NS 250ml 15 UNITS/250 ML IV.SOLN 2 UNITS IV (03:48)
--- NOTE | 2024-08-13 07:18 | PCM.PN.CNM ---
Subjective Subjective Patient seen at bedside. Feeling cramping with contractions. Declines epidural at this time. Objective Data Objective Data Vital Signs: Vital Signs Temp Pulse Resp BP Pulse Ox 98.0 F 72 16 126/66 H 97 08/13/24 06:05 08/13/24 06:06 08/13/24 06:05 08/13/24 06:06 08/13/24 05:04 Weight: 166 lb 2 oz Body Mass Index (BMI) 29.4 Intake & Output: Intake and Output for Last 24 Hours 08/11/24 08/12/24 08/13/24 23:59 23:59 23:59 Intake Total 849.9 / 849.9 Balance 849.9 / 849.9 Lab / Micro Data 08/12/24 20:00 Labs: Laboratory Results - last 24 hr 08/12/24 20:00: WBC 10.2, RBC 3.35 L, Hgb 10.0 L, Hct 29.6 L, MCV 88.4, MCH 29.9, MCHC 33.8, RDW Std Deviation 45.1 H, RDW Coeff of [place] 14.1, Plt Count 234, MPV 9.7, Immature Gran % (Auto) 0.400, Neut % (Auto) 75.2 H, Lymph % (Auto) 16.7 L, [place] % (Auto) 6.8, Eos % (Auto) 0.5, Baso % (Auto) 0.4, Absolute Neuts (auto) 7.6, Absolute Lymphs (auto) 1.69, Nucleated RBC % 0, Syphilis Total Ab Nonreactive, Blood Type A POSITIVE, Antibody Screen NEGATIVE 08/12/24 20:04: POC Glucose 82 08/12/24 21:11: POC Glucose 71 L 08/13/24 01:06: POC Glucose 70 L NST FHR Rate Baby A Baseline: 130 Variability:: Moderate Accelerations:: 15 x 15 Decelerations:: None NST Reactive:: Yes FHR Category:: Category I Uterine Activity:: 1-3 Assessment & Plan (1) Bipolar 1 disorder: (2) Maternal serum screen positive for trisomy 21: COMMENT: NIPT NEGATIVE (3) Elective induction of labor planned: (4) Rubella non-immune status, antepartum: (5) Gestational diabetes: COMMENT: Diet controlled (6) 39 weeks gestation of : (7) Major depression: PLAN: Plan CE /-3 -posterior Pitocin at 8 mu/min- continue to increase per policy Epidural when indicated Dr. Keenan given report and assuming management
[2024-08-13 08:28] LABS: Bedside Glucose 74 mg/dL (74-106)
[2024-08-13] MEDS: Lactated Ringers 1,000 ML 999 ML IV (08:38)
[2024-08-13 08:59] LABS: Bedside Glucose 78 mg/dL (74-106)
[2024-08-13] MEDS: fentaNYL-bupivacaine (epidural) 100 ML BAG EPIDURAL ×4 (09:16→23:28)
[2024-08-13 11:24] LABS: Bedside Glucose 77 mg/dL (74-106)
--- NOTE | 2024-08-13 12:15 | PN.OBGYN_ITS ---
Subjective Subjective AROM for clear fluid. /-3 CAT 1 q 2-4 Objective Data Objective Data Vital Signs: Vital Signs Temp Pulse Resp BP Pulse Ox 98.3 F 80 16 137/84 H 99 08/13/24 10:25 08/13/24 10:25 08/13/24 10:25 08/13/24 10:25 08/13/24 10:25 Weight: 75.353 kg Body Mass Index (BMI) 29.4 Intake & Output: Intake and Output for Last 24 Hours 08/11/24 08/12/24 08/13/24 23:59 23:59 23:59 Intake Total 2218.03 / 2218.03 Balance 2218.03 / 2218.03 Lab / Micro Data 08/12/24 20:00 Labs: Laboratory Results - last 24 hr 08/12/24 20:00: WBC 10.2, RBC 3.35 L, Hgb 10.0 L, Hct 29.6 L, MCV 88.4, MCH 29.9, MCHC 33.8, RDW Std Deviation 45.1 H, RDW Coeff of [place] 14.1, Plt Count 234, MPV 9.7, Immature Gran % (Auto) 0.400, Neut % (Auto) 75.2 H, Lymph % (Auto) 16.7 L, [place] % (Auto) 6.8, Eos % (Auto) 0.5, Baso % (Auto) 0.4, Absolute Neuts (auto) 7.6, Absolute Lymphs (auto) 1.69, Nucleated RBC % 0, Syphilis Total Ab Nonreactive, Blood Type A POSITIVE, Antibody Screen NEGATIVE 08/12/24 20:04: POC Glucose 82 08/12/24 21:11: POC Glucose 71 L 08/13/24 01:06: POC Glucose 70 L 08/13/24 05:08: POC Glucose 74 08/13/24 08:35: POC Glucose 78 08/13/24 10:48: POC Glucose 77 Assessment & Plan (1) Maternal serum screen positive for trisomy 21: COMMENT: NIPT NEGATIVE PLAN: Increased risk of still (2) Gestational diabetes: QUALIFIERS: Gestational diabetes mellitus control: diet-controlled COMMENT: Diet controlled (3) 39 weeks gestation of : (4) Bipolar 1 disorder: PLAN: Plan Continue labor management per protocol
[2024-08-13 12:54] LABS: Bedside Glucose 69 mg/dL (74-106)
[2024-08-13] MEDS: Ondansetron 4 MG/2 ML Vial IV ×2 (13:07→19:56)
[2024-08-13] MEDS: Lactated Ringers 1,000 ML 200 ML IV (13:58)
[2024-08-13 14:08] LABS: Bedside Glucose 73 mg/dL (74-106)
[2024-08-13 15:20] LABS: Bedside Glucose 101 mg/dL (74-106)
[2024-08-13 16:43] LABS: Bedside Glucose 64 mg/dL (74-106)
[2024-08-13 17:32] LABS: Bedside Glucose 79 mg/dL (74-106)
[2024-08-13 18:47] LABS: Bedside Glucose 78 mg/dL (74-106)
--- NOTE | 2024-08-13 18:55 | PCM.PN.OB ---
Subjective Subjective /-2 Clear fluid PIt at 18 CAt 1 Objective Data Objective Data Vital Signs: Vital Signs Temp Pulse Resp BP Pulse Ox 98.5 F 79 16 119/66 100 08/13/24 18:16 08/13/24 18:15 08/13/24 18:16 08/13/24 18:15 08/13/24 18:16 Weight: 75.353 kg Body Mass Index (BMI) 29.4 Intake & Output: Intake and Output for Last 24 Hours 08/11/24 08/12/24 08/13/24 23:59 23:59 23:59 Intake Total 2945.03 / 2945.03 Output Total 1850 / 1850 Balance 1095.03 / 1095.03 Lab / Micro Data 08/12/24 20:00 Labs: Laboratory Results - last 24 hr 08/12/24 20:00: WBC 10.2, RBC 3.35 L, Hgb 10.0 L, Hct 29.6 L, MCV 88.4, MCH 29.9, MCHC 33.8, RDW Std Deviation 45.1 H, RDW Coeff of [place] 14.1, Plt Count 234, MPV 9.7, Immature Gran % (Auto) 0.400, Neut % (Auto) 75.2 H, Lymph % (Auto) 16.7 L, [place] % (Auto) 6.8, Eos % (Auto) 0.5, Baso % (Auto) 0.4, Absolute Neuts (auto) 7.6, Absolute Lymphs (auto) 1.69, Nucleated RBC % 0, Syphilis Total Ab Nonreactive, Blood Type A POSITIVE, Antibody Screen NEGATIVE 08/12/24 20:04: POC Glucose 82 08/12/24 21:11: POC Glucose 71 L 08/13/24 01:06: POC Glucose 70 L 08/13/24 05:08: POC Glucose 74 08/13/24 08:35: POC Glucose 78 08/13/24 10:48: POC Glucose 77 08/13/24 12:28: POC Glucose 69 L 08/13/24 13:38: POC Glucose 73 L 08/13/24 15:00: POC Glucose 101 08/13/24 16:08: POC Glucose 64 L 08/13/24 16:55: POC Glucose 79 08/13/24 18:27: POC Glucose 78 Assessment & Plan (1) Bipolar 1 disorder: (2) Maternal serum screen positive for trisomy 21: COMMENT: NIPT NEGATIVE (3) Gestational diabetes: QUALIFIERS: Gestational diabetes mellitus control: diet-controlled Trimester: third trimester Qualified Code(s): O24.410 - Gestational diabetes mellitus in , diet controlled COMMENT: Diet controlled (4) 39 weeks gestation of :
[2024-08-13] MEDS: Lactated Ringers 1,000 ML 100 ML IV (19:06)
--- NOTE | 2024-08-13 19:34 | NURSING ---
discussed with dr Keenan pts iv and po intake plan is to decrease the pts ivf to 100 cc/hr instead of 200 cc/hr
[2024-08-13] MEDS: 0.9% Saline Lock 10 ML Syringe IV (19:56)
[2024-08-13 19:59] LABS: Bedside Glucose 61 mg/dL (74-106)
[2024-08-13 21:03] LABS: Bedside Glucose 67 mg/dL (74-106)
[2024-08-13 22:01] LABS: Bedside Glucose 99 mg/dL (74-106)
[2024-08-13 22:13] LABS: Amphetamine Urine NEGATIVE (<1000 ng/mL); Barbiturate Urine NEGATIVE (< 200 ng/mL); Benzodiazepine Urine NEGATIVE (< 200 ng/mL); Buprenorphine Urine NEGATIVE (< 200 ng/mL); Cocaine Urine NEGATIVE (< 300 ng/mL); Fentanyl, Urine PRESUMPTIVE POSITIVE; Methadone Urine NEGATIVE (< 300 ng/mL); Opiates Urine NEGATIVE (< 300 ng/mL); Oxycodone, Urine NEGATIVE (< 100 ng/mL); PCP Urine NEGATIVE (< 25 ng/mL); THC Urine NEGATIVE (< 50 ng/mL)
[2024-08-13] MEDS: Oxytocin 15 Units/NS 250ml 15 UNITS/250 ML IV.SOLN 20 UNITS IV (23:02)
[2024-08-13 23:03] LABS: Bedside Glucose 76 mg/dL (74-106)
[2024-08-14] VITALS (24 sets, daily range): BP systolic 120–149; BP diastolic 57–110; PULSE 70–110; RESP 15–18; TEMP 36.5–37; O2SAT 94–99
[2024-08-14] MEDS: 0.9% Saline Lock 10 ML Syringe IV ×5 (00:44→21:05)
[2024-08-14] MEDS: Acetaminophen 500 MG Tablet PO (00:44)
[2024-08-14] MEDS: Ondansetron 4 MG/2 ML Vial IV (00:44)
[2024-08-14] MEDS: Calcium Carbonate 500 MG Tablet 1000 MG PO (01:49)
[2024-08-14] MEDS: Lactated Ringers 1,000 ML 100 ML IV (02:20)
[2024-08-14 02:56] LABS: Bedside Glucose 95 mg/dL (74-106)
--- NOTE | 2024-08-14 04:26 | PCM.PN.OB ---
Subjective Subjective IOL at 39 weeks per M for a hx of elevated inhibin. Increased risk of still . Diet controlled gestational DM. Had one dose of Cytotec. A Pulliam bulb could not be placed. AROM at 3 cm. Has made minimal change to 4 cm in the last 12 hours. Pitocin up to 20 MUs and then a Pitocin break. Made no additional cervical change and requested a primary . Risk and benefits of procedure discussed and she would like to proceed. Objective Data Objective Data Vital Signs: Vital Signs Temp Pulse Resp BP Pulse Ox 98.1 F 72 15 128/64 H 97 08/14/24 03:56 08/14/24 03:55 08/14/24 03:56 08/14/24 03:55 08/14/24 02:38 Weight: 75.353 kg Body Mass Index (BMI) 29.4 Intake & Output: Intake and Output for Last 24 Hours 08/12/24 08/13/24 08/14/24 23:59 23:59 23:59 Intake Total 5621.98 / 5621.98 484.89 / 484.89 Output Total 2350 / 2350 Balance 3271.98 / 3271.98 484.89 / 484.89 Lab / Micro Data 08/12/24 20:00 Labs: Laboratory Results - last 24 hr 08/13/24 05:08: POC Glucose 74 08/13/24 08:35: POC Glucose 78 08/13/24 10:48: POC Glucose 77 08/13/24 12:28: POC Glucose 69 L 08/13/24 13:38: POC Glucose 73 L 08/13/24 15:00: POC Glucose 101 08/13/24 16:08: POC Glucose 64 L 08/13/24 16:55: POC Glucose 79 08/13/24 18:27: POC Glucose 78 08/13/24 19:38: POC Glucose 61 L 08/13/24 20:38: POC Glucose 67 L 08/13/24 21:38: POC Glucose 99 08/13/24 21:40: Urine Opiates Screen NEGATIVE, U Buprenorphine Qual NEGATIVE, Ur Oxycodone Screen NEGATIVE, Urine Methadone Screen NEGATIVE, Urine Fentanyl Screen PRESUMPTIVE POSITIVE, Ur Barbiturates Screen NEGATIVE, Ur Phencyclidine Scrn NEGATIVE, Ur Amphetamines Screen NEGATIVE, U Benzodiazepines Scrn NEGATIVE, Urine Cocaine Screen NEGATIVE, U Cannabinoids Screen NEGATIVE 08/13/24 22:45: POC Glucose 76 08/14/24 02:37: POC Glucose 95 NST FHR Rate Baby A Baseline: 135 Variability:: Moderate Accelerations:: 15 x 15 Decelerations:: None NST Reactive:: Yes FHR Category:: Category I Uterine Activity:: q 3 Assessment & Plan (1) Maternal serum screen positive for trisomy 21: COMMENT: NIPT NEGATIVE (2) Bipolar 1 disorder: (3) Gestational diabetes: QUALIFIERS: Gestational diabetes mellitus control: diet-controlled Trimester: third trimester Qualified Code(s): O24.410 - Gestational diabetes mellitus in , diet controlled COMMENT: Diet controlled (4) 39 weeks gestation of : (5) High risk with high inhibin: PLAN: Increased risk of still , IUGR, pre E and GDM PLAN: Plan Primary for failure to progress
[2024-08-14] MEDS: Sodium Citrate/Citric Acid 30 ML UDC PO (04:31)
[2024-08-14 04:52] LABS: Bedside Glucose 88 mg/dL (74-106)
--- NOTE | 2024-08-14 05:25 | OP.PCM_ITS ---
Assessment & Plan (1) Failed induction of labor: QUALIFIERS: Failed induction of labor type: medical Qualified Code(s): O61.0 - Failed medical induction of labor (2) High risk with high inhibin: (3) Bipolar 1 disorder: (4) Maternal serum screen positive for trisomy 21: COMMENT: NIPT NEGATIVE (5) Rubella non-immune status, antepartum: (6) Gestational diabetes: QUALIFIERS: Gestational diabetes mellitus control: diet-controlled Trimester: third trimester Qualified Code(s): O24.410 - Gestational diabetes mellitus in , diet controlled COMMENT: Diet controlled (7) 39 weeks gestation of : Maternal Data Information MAUREEN Calculator Estimated Delivery Date Method Current WG Current Estimate 08/19/24 Manual 39w 2d Final MAUREEN: 08/19/24 Gestational age: 39+2 Operative Report (OB) Details Procedure Type: low transverse Date of Procedure: 08/14/24 Procedure Start Time: 04:57 Procedure Stop Time: 05:23 Time of Delivery: 05:01 Pre-Operative Diagnosis: Failure to Progress and Failure of Descent Post-Operative Diagnosis: Same as Pre-operative diagnosis Classification: JOSE Type of Anesthesia: Epidural Antibiotic Given: Ancef 2 grams IV x1 and Zithromax 500 mg/5 mL X1 Drain: Pulliam to straight drain Estimated Blood Loss: 500 cc Findings Description of surgery: Patient taken to the OR with epidural and Pulliam in place. Epidural was dosed for . She was prepped and draped in the normal sterile fashion. A Pfannenstiel incision was made and carried down to the underlying fascia. The fascia was incised in the midline and extended laterally. The fascia was dissected from the muscle. The muscles divided in the midline. The peritoneum was entered bluntly and extended manually. A bladder blade was placed. A bladder flap was created. A low transverse incision was made and extended bluntly. The head was elevated to the incision. The shoulders delivered easily. The infant cried upon delivery. The cord was cut and clamped. The placenta was delivered with jorge traction. The uterus was exteriorized and cleared of all clot and debris. The incision was repaired with 1-0 Vicryl x 2. The uterus was returned the abdomen, The gutter cleared of all clots. The peritoneum was closed with 2-0 Monocryl. The fascia was closed with 1-0 Vicryl. The subcutaneous tissue was reapproximated with 2-0 Monocryl The skin was closed with 4-0. I performed the major parts of the procedure with the RFNA assisting with retraction and closing the skin. 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
[2024-08-14] MEDS: Ketorolac 30 MG/ML Syringe IV ×2 (06:16→12:35)
[2024-08-14] MEDS: Oxytocin 15 Units/NS 250ml 15 UNITS/250 ML IV.SOLN 83 UNITS IV (06:25)
[2024-08-14] MEDS: Acetaminophen 500 MG Tablet 1000 MG PO ×3 (06:48→18:34)
[2024-08-14 07:19] LABS: Bedside Glucose 85 mg/dL (74-106)
[2024-08-14] MEDS: Ibuprofen 600 MG Tablet PO (19:09)
[2024-08-14] MEDS: Morphine 2 MG/ML Syringe IV (21:05)
[2024-08-15] VITALS (7 sets, daily range): BP systolic 131–151; BP diastolic 33–96; PULSE 72–87; RESP 15–20; TEMP 36.2–36.9; O2SAT 97–98
[2024-08-15] MEDS: Acetaminophen 500 MG Tablet 1000 MG PO ×4 (00:01→20:17)
[2024-08-15] MEDS: 0.9% Saline Lock 10 ML Syringe IV ×4 (00:42→10:56)
[2024-08-15] MEDS: Morphine 2 MG/ML Syringe IV ×3 (00:43→10:56)
[2024-08-15] MEDS: Ibuprofen 600 MG Tablet PO ×4 (00:59→20:17)
[2024-08-15 05:26] LABS: Hematocrit 25.4 % (37-47); Hemoglobin 8.4 g/dL (12.0-15.0); Mean Corp Hgb Conc 33.1 g/dL (32-36); Mean Corpuscular Volume 90.7 fL (81-99); Mean Platelet Vol. 9.6 fl (6.2-12.0); Platelet Count 187 K/mm3 (150-450); RBC Distribution Width CV 14.2 % (11.6-14.6); RBC Distribution Width SD 47.2 fl (35.1-43.9); White Blood Count 13.6 K/mm3 (4.4-11.0)
[2024-08-15 05:33] LABS: Bedside Glucose 70 mg/dL (74-106)
--- NOTE | 2024-08-15 07:50 | PCM.PN.CNM ---
Subjective Subjective Patient seen at bedside. Denies headache, vision changes, SOB or CP. Ambulating and voiding without difficulty. Passing flatus. Lochia decreased. Objective Data Objective Data Vital Signs: Vital Signs Temp Pulse Resp BP Pulse Ox O2 Del Method 98.1 F 72 20 H 137/33 H 98 Room Air 08/15/24 05:05 08/15/24 05:05 08/15/24 05:05 08/15/24 05:05 08/15/24 05:05 08/15/24 05:05 Oxygen Delivery Method Room Air Weight: 166 lb 2 oz Body Mass Index (BMI) 29.4 Intake & Output: Intake and Output for Last 24 Hours 08/13/24 08/14/24 08/15/24 23:59 23:59 23:59 Intake Total 5621.98 / 5621.98 1017.36 / 1017.36 Output Total 2350 / 2350 3900 / 3900 Balance 3271.98 / 3271.98 -2882.64 / -2882.64 Lab / Micro Data Attestation: I reviewed the patient's lab results. 08/15/24 05:15 Labs: Laboratory Results - last 24 hr 08/15/24 05:10: POC Glucose 70 L 08/15/24 05:15: WBC 13.6 H, RBC 2.80 L, Hgb 8.4 L, Hct 25.4 L, MCV 90.7, MCH 30.0, MCHC 33.1, RDW Std Deviation 47.2 H, RDW Coeff of [place] 14.2, Plt Count 187, MPV 9.6 ROS Eyes Eyes: Denies blurry vision, spots in vision or tunnel vision ENT HEENT: Denies dizziness or headache(s) Cardiovascular Cardiovascular: Reports systems reviewed and no addt'l complaints, except as documented, dizziness and dyspnea Respiratory/Chest Respiratory/Chest: Reports systems reviewed and no addt'l complaints, except as documented Gastrointestinal Gastrointestinal: Reports systems reviewed and no addt'l complaints, except as documented Genitourinary Genitourinary: Reports systems reviewed and no addt'l complaints, except as documented Neurologic Neurologic: Denies abnormal speech, dizziness, headache(s), syncope or vertigo Psychiatric Psychiatric: Reports systems reviewed and no addt'l complaints, except as documented Physical Exam Narrative Patient seen at bedside. Up and ambulating in room. Voiding without difficulty. Pain controlled at this time. Breast feeding with support. Denies headache, CP , or SOB. Anticipate discharge home tomorrow. Const alert and no apparent distress General Appearance: cooperative Orientation / Consciousness: awake, oriented to person and oriented to place Exam Limitations: no limitations HEENT normocephalic Eyes General Eye: normal appearance of both eyes Neck full ROM Chest Chest: symmetrical chest wall rise Resp normal respiratory effort, normal air movement and clear to auscultation bilaterally Auscultation: clear to auscultation bilaterally Cardio regular rate and regular rhythm GI normal to inspection, nondistended, normoactive bowel sounds Uterus Palpation: uterus fundus firm Extremity full ROM and no calf tenderness Skin no rashes or lesions noted Neuro oriented x3 Psych mental status grossly normal and activity/motor behavior normal Assessment & Plan (1) Failed induction of labor: QUALIFIERS: Failed induction of labor type: medical Qualified Code(s): O61.0 - Failed medical induction of labor (2) Bipolar 1 disorder: (3) Rubella non-immune status, antepartum: (4) Major depression: (5) Care and examination of lactating mother: (6) Anemia due to blood loss, acute: PLAN: Plan Pain control Increase ambulation HGB 8.9 today from 10- start oral iron supplementation support Anticipate discharge home tomorrow
[2024-08-15] MEDS: Ferrous Sulfate 325 MG Tablet PO ×2 (10:56→16:47)
[2024-08-15] MEDS: Senna/Docusate Sodium 1 Tablet PO (10:56)
[2024-08-15] MEDS: Labetalol 200 MG Tablet PO ×2 (14:57→22:03)
--- NOTE | 2024-08-15 15:25 | CASEMGMT ---
Social Work Assessment Labor and Delivery Unit Patient Address: [address] [place] [address] Phone number: [phone] Date of Referral: 08/13/24 Time of Referral: 18:43 Referred By: Sveta Keenan Date of Intervention: 08/15/24 Time of Intervention: 15:24 Reason for Referral: Mental Health History obtained from: Medical records, mother of baby (MOB) and father of baby (FOB).? Household composition: YAMILEX MARRERO (Rohit Cuenca, age 23) and their son, Margarito Cuenca, born 08/14/24. Patient's parent/guardian status: MOB and FOB have been together for 4 years and are not . ???Both are actively involved and will be providing care for baby. MOB denied any concerns with domestic violence and described a positive and supportive relationship with the FOB. Medical History: ?: 2, Para, now 1. ELIDA reported she had a miscarriage in August of 2023. ELIDA received PNC through [facility] beginning at 7 weeks and 1 day. Apgars: 8 and 9. Weight: 8lbs, 5oz. Crm Architect: Harpreet. Educational Status: MOB and FOB denied any issues or concerns with reading or writing. MOB earned her High School Diploma and the FOB is currently in college studying Business Administration. Financial Status: MOB and FOB reported their income is sufficient to meet the needs of their family at this time. 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 ?MOB reported the FOB ?changes jobs a lot?. Supplies: MOB and FOB reported they have all the supplies they need for baby at this time including but not limited to: Car Seat, bassinet, pack-n-play, crib, diapers, bottles and clothing. ELIDA is in the process of getting a breast pump through her insurance. Childcare/Caregiver(s):? MOB reported she will be on maternity leave until the beginning of October. Both MOB and FOB will provide care during the times they are not working. ? Transportation:? MOB and FOB reported they are both licensed drivers and have a reliable vehicle to take baby to and from all medical appointments. No transportation issues identified. Programs/Agencies Involved: MOB reported she is in the process of getting WIC involved and was previously involved in counseling at [facility]. MOB has a prior history of legal involvement in 2018 related to marijuana and Xanax. No additional details are known. MOB did not wish to discuss further details. Children Services/Legal Issues:? Denied. Behavioral Health Issues: ??Mental Health History: Anxiety, depression, Bipolar and history of suicidal ideation on 12/02/17 which appears to have resulted in an inpatient placement. MOB is not currently on any medication and reported symptoms are currently managed at this time without medication. ?Substance Use History: MOB: MOB admitted to using marijuana several times a week throughout her however quit roughly a month prior to delivery. ?MOB has a history of using cocaine; last use in 2018 and former vaping. MOB quit few months before delivery. Possible previous Xanax abuse but not confirmed. FOB reported he drinks on occasion. ???Family History: Not reported. MOB reported a history of drug and alcohol abuse on both sides of her family including but not limited to, ?s maternal grandmother (MGM) and maternal grandfather (MGF). MOB reported MGF?s abuse was ?in the past?.?? MOB also reported a history of anxiety, depression and bipolar with ?s MGF, anxiety and depression with ?s MGM and anxiety with ?s maternal aunt. FOB denied any history. Drug Screens: ?MOB and : presumptive positive for Fentanyl which social work job titles confirmed with MOB?s nurse that MOB was given 3 doses during labor. ?shine worker administered the [place].? MOB?s score was a 4.? shine worker provided verbal education about the screening tool as well as scores to look out for in the future which MOB reported she understood. Family/Social Stressors: ?MOB and FOB denied any current family or social stressors. Support Systems: Ample.? MOB identified her biggest supports as the FOB, MGM, MGF and paternal grandmother (PGM). Depression/Shaken Baby/Safe Sleeping: shine worker provided verbal and written education on PPD, Safe Sleeping and Shaken Baby.? Parents verbalized an understanding. ??? ASSESSMENT:? MOB provided consent to social work visit. Upon arrival, ELIDA was alone with , had been standing up and then proceeded to get into the hospital bed. MOB was verbally engaged and cooperative. It should be noted that baby had just been circumcised, and was tearful off and on.? ?Though the MOB had ?s crib close by at her bedside, MOB never picked up to console him , rather stroked ?s face which at times, worked. This social work job titles offered to assist with handing to the MOB which MOB verbally decline. Not too long after, the nurse for MOB ??came in to give the MOB medication, noticed was crying, went to to console , and also asked the MOB if she would like to be handed , which MOB declined for the second time. At the time the FOB arrived, about retirement through the assessment, ?he entered the room crying and was visibly shaken and struggling and could hardly talk.? shine worker provided support and encouragement and the FOB stated he was just tired because he hadn?t been able to eat, sleep or exercise. FOB remained tearful off and on throughout the visit.? Animal Keeper Head provided verbal education for self care and encouraged the FOB to rest and eat. again became very tearful and louder and both MOB and FOB were stroking newborns face/each on one side. shine worker provided coaching and educated MOB and FOB that sometimes, ?s cry because they want to be held or aren?t feeling good and encouraged both the MOB to consider picking up however neither did until the end of the assessment at which point the MOB asked the FOB to hand her their which the FOB did. FOB was observed to be gentle and the MOB was also observed to be gentle once she had in her arms. immediately stopped crying. During the time social work job titles had met with the MOB alone, MOB reported feeling safe at home, denied any previous or current DV and also denied any drug or alcohol abuse with either herself or the FOB as well as any unmanaged mental health issues with either herself of the FOB. Safe Plan of Care for related to substance use: MOB reported she stopped marijuana use roughly a month prior to delivery and has no intentions of resuming now that has been delivered. shine worker provided both verbal and written education as well as verbal and written education on and marijuana use which MOB verbalized she understood. shine worker also provided education about the dangers of anyone providing childcare if under the influences of any drugs and/or alcohol. ? PLAN:? Baby to be discharged home when ready.? shine worker also provided written information on depression, depression resources and Help Me Grow as additional resources offered by social work job titles which MOB and FOB accepted. No other services requested or indicated. Per protocol, social work job titles will make referral to Children Services due to drug use throughout as well as general themes related to parenting skills as noted above. Sveta Dumont, SENIOR RESEARCH ASSOCIATE, POST ANESTHESIA ROOM NURSE
--- NOTE | 2024-08-15 22:35 | CASEMGMT ---
Social Work: general production worker made phone contact with Child Protective Services and spoke with Kiah. general production worker made referral and was advised that they will send out letter if referral is accepted or not and did not place any restrictions on baby being discharged. Sveta Dumont, PATIENT ACCOUNT LIAISON, COMBAT SYSTEMS OPERATOR [employer]
[2024-08-16] MEDS: Acetaminophen 500 MG Tablet 1000 MG PO ×4 (03:02→23:10)
[2024-08-16] MEDS: Ibuprofen 600 MG Tablet PO ×4 (03:02→23:10)
[2024-08-16 03:16] VITALS: BP 131/85; PULSE 77; RESP 16; TEMP 36.7; O2SAT 98
[2024-08-16] MEDS: Labetalol 200 MG Tablet PO ×2 (08:10→23:10)
[2024-08-16 08:19] VITALS: BP 147/91; PULSE 77; RESP 16; TEMP 36.8; O2SAT 97
--- NOTE | 2024-08-16 09:00 | PCM.PN.CNM ---
Subjective Subjective Patient seen at bedside. Denies any headaches, vision changes, SOB, or CP. Ambulating and voiding without difficulty. Pain is controlled with PO medications. Pumping and also supplementing with formula. Lochia decreased. Objective Data Objective Data Vital Signs: Vital Signs Temp Pulse Resp BP Pulse Ox O2 Del Method 98.3 F 77 16 147/91 H 97 Room Air 08/16/24 08:19 08/16/24 08:19 08/16/24 08:19 08/16/24 08:19 08/16/24 08:19 08/16/24 08:19 Oxygen Delivery Method Room Air Weight: 166 lb 2 oz Body Mass Index (BMI) 29.4 Intake & Output: Intake and Output for Last 24 Hours 08/14/24 08/15/24 08/16/24 23:59 23:59 23:59 Intake Total 1017.36 / 1017.36 Output Total 3900 / 3900 Balance -2882.64 / -2882.64 Lab / Micro Data Attestation: I reviewed the patient's lab results. 08/15/24 05:15 ROS Eyes Eyes: Denies blurry vision, spots in vision or tunnel vision ENT HEENT: Denies dizziness or headache(s) Cardiovascular Cardiovascular: Reports systems reviewed and no addt'l complaints, except as documented, dizziness and dyspnea Respiratory/Chest Respiratory/Chest: Reports systems reviewed and no addt'l complaints, except as documented Gastrointestinal Gastrointestinal: Reports systems reviewed and no addt'l complaints, except as documented Genitourinary Genitourinary: Reports systems reviewed and no addt'l complaints, except as documented Neurologic Neurologic: Denies abnormal speech, dizziness, headache(s), syncope or vertigo Psychiatric Psychiatric: Reports systems reviewed and no addt'l complaints, except as documented Physical Exam Const alert and no apparent distress General Appearance: cooperative Orientation / Consciousness: awake, oriented to person and oriented to place Exam Limitations: no limitations HEENT normocephalic Eyes General Eye: normal appearance of both eyes Neck full ROM Chest Chest: symmetrical chest wall rise Resp normal respiratory effort, normal air movement and clear to auscultation bilaterally Auscultation: clear to auscultation bilaterally Cardio regular rate and regular rhythm GI normal to inspection, nondistended, normoactive bowel sounds Uterus Palpation: uterus fundus firm Extremity full ROM and no calf tenderness Skin no rashes or lesions noted Neuro oriented x3 Psych mental status grossly normal and activity/motor behavior normal Assessment & Plan (1) Anemia due to blood loss, acute: (2) Care and examination of lactating mother: (3) Bipolar 1 disorder: (4) Status post primary low transverse section: (5) Elevated blood pressure reading without diagnosis of hypertension: PLAN: Plan POD 3 Primary C/S Blood pressures- Remain 130-140/ 80-90's no severe readings Labetalol 200 mg PO BID Social work consult Pain control Discussed with patient recommendation to stay for continued blood pressure monitoring with possible discharge home tomorrow
[2024-08-16 10:04] VITALS: BP 137/83
[2024-08-16 11:31] VITALS: BP 123/82; PULSE 88; RESP 16; TEMP 37.2; O2SAT 98
[2024-08-16] MEDS: Ferrous Sulfate 325 MG Tablet PO ×2 (12:54→17:06)
[2024-08-16] MEDS: Senna/Docusate Sodium 1 Tablet PO (12:54)
--- NOTE | 2024-08-16 14:30 | CASEMGMT ---
Social Work: antichecking iron worker received update from nursing that earlier this morning, the father of baby (FOB) was very tearful and and on the way out to leave the hospital, said I can't do this anymore. FOB had left the hospital on 08/15/2024 and was supposed to return to the hospital last night to spend the night with the mother of baby (MOB) but never did. Nursing had do MOB could try and get some sleep. 13:12: antichecking iron worker went into the room of the MOB and 's paternal grandmother (PGM) was there, holding . MGM was up and about and doing things around the room. PGM was very attentive to and was observed to be very gentle, attentive and bonded to and was very pleasant. MOB stated she thought she was going to get to go home on this date however stated her blood pressure still isn't good enough for her to go home. She stated the medication works and then wears off resulting it being elevated again. MOB did not look to be excited that 7th grade social studies teacher wanted to visit again. antichecking iron worker offered to return at a time convenient to the MOB since she had a visitor at which point the MOB stated 7th grade social studies teacher could return for a visit at 15:00. 14:32: antichecking iron worker received a call from the [facility] stating that the MOB is declining any additional case management follow up. Due to concerns that the MOB and FOB are living together and the FOB appears to remain overwhelmed and has verbalized that he is no longer able to do this, 7th grade social studies teacher will provide this additional update to Children Services. Sveta Dumont, DEVELOPMENT INTERN, ELECTRONIC COMMUNICATIONS TECHNICIAN
[2024-08-16 16:25] VITALS: BP 135/80; PULSE 77; RESP 16; TEMP 37.1; O2SAT 98
--- NOTE | 2024-08-16 18:26 | CASEMGMT ---
Social Work: brush worker made phone contact with Mirela at [facility] and provided update in regards to concerns with the father of baby not feeling like he can do this. No restrictions on baby being discharged to home when medically ready. Sveta Dumont, TUCK POINTER, CONSTRUCTION CREW MEMBER
[2024-08-16 22:20] VITALS: BP 146/89; PULSE 80; RESP 16; TEMP 36.7; O2SAT 99
--- NOTE | 2024-08-17 00:52 | NURSING ---
Late shift assessment and patient care due to unit acuity.
[2024-08-17 03:06] VITALS: BP 140/90; PULSE 92; RESP 16; TEMP 36.6; O2SAT 16
[2024-08-17 05:16] VITALS: BP 152/92
[2024-08-17] MEDS: Acetaminophen 500 MG Tablet 1000 MG PO ×2 (05:17→11:37)
[2024-08-17] MEDS: Ibuprofen 600 MG Tablet PO ×2 (05:18→11:38)
[2024-08-17] MEDS: NIFEdipine 30 MG Tablet PO (07:05)
--- NOTE | 2024-08-17 07:27 | DS.PCM_ITS ---
Providers Date of Admission: 08/12/24 Primary Care Physician: Dr. Nguyễn Kirkland MD Reason For Visit: C SECTION Diagnosis Discharge Diagnosis (1) Anemia due to blood loss, acute: Status: Acute Code(s): D62 - Acute posthemorrhagic anemia (2) Care and examination of lactating mother: Status: Acute Code(s): Z39.1 - Encounter for care and examination of lactating mother (3) Bipolar 1 disorder: Status: Acute Code(s): F31.9 - Bipolar disorder, unspecified (4) Status post primary low transverse section: Status: Acute Code(s): Z98.891 - History of uterine scar from previous surgery (5) Elevated blood pressure reading without diagnosis of hypertension: Status: Acute Code(s): R03.0 - Elevated blood-pressure reading, without diagnosis of hypertension Plan POD 4 Primary C/S Blood pressures- Remain 130-140/ 80-90's no severe readings D/C Labetalol PO and change to Procardia 30 mg XL Continue with BP monitoring today and call Dr. Packer for update prior to discharge Follow up in office this week for BP check and removal of dressing Medications at Discharge Home Medications lamotrigine 100 mg tablet 100 mg PO QHS depress 06/25/21 doxylamine 10 mg-pyridoxine (vit B6) 10 mg tablet,delayed release (Diclegis) 1 tab PO BID anemia #14 tabs 07/15/23 [id number] 1 mg tablet 1 tab PO DAILY 08/12/24 acetaminophen 500 mg tablet 1,000 mg (2 x 500 mg) PO Q6 #0 tabs 08/17/24 ferrous sulfate 325 mg (65 mg iron) tablet (FeroSul) 325 mg PO 1200,1700 #60 tabs 08/17/24 ibuprofen 600 mg tablet 600 mg PO Q6H #0 tabs 08/17/24 nifedipine 30 mg tablet,extended release 24 hr 30 mg PO DAILY #60 tabs 08/17/24 Hospital Course Operations None Procedures None Summary of Care Provided Minutes Spent on Discharge: 15 Hospital Course: Patient had vaginal delivery. Hospital course was uneventful. Physical Exam Narrative Patient seen at bedside. Denies pain. Ambulating and voiding without difficulty. Lochia decreased. Desires discharge home today. Const alert and oriented x3 General Appearance: Negative for in distress HEENT normocephalic Eyes General Eye: normal appearance of both eyes Neck General: normal visual inspection Chest Chest: symmetrical chest wall rise Resp normal respiratory effort and normal air movement Effort and Inspection: symmetric chest movement; Negative for tachypneic Auscultation: clear to auscultation bilaterally Cardio regular rate and regular rhythm Peripheral Pulses: pulses 2+ throughout GI normal to inspection, nondistended, normoactive bowel sounds Narrative: Ice to perineum OB / External & Speculum: vaginal bleeding and other Lochia decreasing Uterus Palpation: uterus fundus firm (Below U) Extremity normal to inspection, full ROM and normal capillary refill Skin no rashes or lesions noted Neuro oriented x3, CN's II-XII intact bilaterally and gait normal Psych mental status grossly normal, thought process normal and activity/motor behavior normal Weight / BMI Weight Weight: 166 lb 2 oz Body Mass Index (BMI) 29.4 ABG / Lab / Microbiology Data 08/15/24 05:15 D/C Instructions Discharge Diet: No restrictions Discharge Activity: Return to Normal Activity, No Restrictions, May Drive, May Shower and May Take a Tub Bath (Warm water only. No bath salts, soaps, bubbles) May resume sexual activity in: 6-8 weeks Weight Bearing Status: Weight bearing as tolerated Call your doctor if you observe: Fever of 101 or Higher, Inability to urinate, Using more than 1 pad per hour, Shortness of breath, Dizziness, Chest pain, Calf discomfort and Uncontrolled pain DC O2, CPAP, BIPAP Needs Home O2 Discharge instructions: No Please Follow Up With: [facility] Patrick VACA When: THIS WEEK IN OFFICE FOR BP & INCISION CHECK Meaningful Use Info Meaningful Use Meaningful Use Diagnoses (Choose all that apply): None applicable Ischemic Stroke Statin Dosing Therapy Reference: STATIN DOSE THERAPY REFERENCE: * Patients > 75 years receive moderate or high dose statin therapy. * Patients 75 years or YOUNGER should receive HIGH intensity statin dose unless contraindicated. You will be required to document reason for non-treatment if statin daily dose does not meet guidelines. HIGH DOSE STATIN THERAPY DAILY Atorvastatin > than or = to 40 mg Rosuvastatin > than or = to 20 mg Amlodipine + Atorvastatin > than or = to 2.5/40 mg Ezetimibe + Simvastatin 10/80 mg Simvastatin 80mg Discharge Plan Admission Admit Date/Time: 08/12/24 19:20 Primary Reason for Your Visit: Labor and Delivery Attending Provider: Sveta Keenan Primary Care Provider: Nguyễn Kirkland Discharge Orders/Prescriptions Prescriptions: New nifedipine 30 mg Tablet Extended Release 24hr 30 mg PO DAILY Qty: 60 1RF acetaminophen 500 mg Tablet 1,000 mg PO Q6 Qty: 0 0RF ferrous sulfate [FeroSul] 325 mg (65 mg iron) Tablet 325 mg PO 1200,1700 Qty: 60 0RF ibuprofen 600 mg Tablet 600 mg PO Q6H Qty: 0 0RF No Action lamotrigine 100 mg Tablet 100 mg PO QHS doxylamine-pyridoxine (vit B6) [Diclegis] 10-10 mg tablet,delayed release (DR/EC) 1 tab PO BID Qty: 14 0RF [id number] 1 mg tablet 1 tab PO DAILY Referrals / Follow Up: Catherine Boggs CNM [Med Staff - [facility]] - Nguyễn Kirkland MD [Primary Care Provider] - Disposition Disposition (needs filled in before D/C Order can be placed): Home, Self Care
[2024-08-17 08:00] VITALS: BP 149/93; PULSE 90; RESP 16; TEMP 36.6
[2024-08-17] MEDS: MEASLES,MUMPS,RUBELLA VACC/PF 0.5 ML SC (08:43)
--- NOTE | 2024-08-17 10:48 | CASEMGMT ---
Social Work Brief Assessment - Labor and Delivery Unit Patient Address: [address] [place] [address] [place] [address] Date and time of intervention:? 08/17/24999 History:? Hilda completed chart review. Hilda notes that weekend social work coordinator, Sveta Dumont, SUPERINTENDENT DRILLING, SENIOR DIRECTOR MARKETING, made referral to [facility] due to maternal substance use history, mental health and presumptive positive urine screen at time of delivery. Hilda called [facility] and spoke to assigned disc pad knockout worker, Michelle. Michelle states that at this time it is okay for MOB and baby to be discharged together once medically ready. Hilda stated that there have been concerns expressed by paternal grandma, that reason for [facility] involvement is due to father of baby emotions and him indicating that he can't do this anymore and then left the unit. Michelle states that although she was informed that FOB had said this, that is not the only reason why the agency is involved. Michelle stated that when she met with MOB at bedside, she informed her that Michelle would be calling her and touching base with her a couple of days after discharge, to discuss resources and to be a support to her. Hilda informed Michelle that FOB has not presented to the unit since he left on Saturday, and paperwork regarding certificate still needs to be completed. Michelle did not have any other information or questions for hilda. - Hilda updated nursing staff that per [facility] it is okay for baby to be discharged with MOB when medically ready. Assessment:? MOB and baby currently admitted following labor and delivery. MOB with substance use and mental health history. MOB disclosed ongoing use of THC throughout until a month ago. Referral was made to [facility] and was screened in and assigned to disc pad knockout workerMichelle. Michelle will remain involved with MOB/ family post discharge to ensure that they are provided support, education and connected to beneficial and appropriate community resources. Plan:??? MOB and baby to be discharged when medically ready. No further needs requested or indicated. Felecia Gates, SUPERINTENDENT DRILLING, SENIOR DIRECTOR MARKETING
[2024-08-17] MEDS: Ferrous Sulfate 325 MG Tablet PO (11:38)
[2024-08-17 12:00] VITALS: BP 136/88
--- NOTE | 2024-08-21 17:39 | NURSING ---
Follow up phone call: Patient reports she is feeling well and happy to be home. Her vaginal bleeding has almost finished. Her incision looks well and she had a follow up 08-20-24 with her OB and she reported it is looking really well. Seun is now switched to formula only and doing well with that. Patient reports no s +s of pp complications and knows to reach her OB if any develop. Patient was satisfied with her care.
--- NOTE | 2024-08-29 11:06 | CASEMGMT ---
Social Work: sheetmetal worker notified by [facility] that the referral was not accepted. Sveta Dumont, FRESCO ARTIST, CUSTOM STOCK MAKER
--- NOTE | 2024-08-29 11:15 | CASEMGMT ---
Social Work: Technical Publications Writer received another letter from [facility] stating the referral was accepted. Sveta Dumont, SERVICE DISPATCHER, CURTAIN SUPERVISOR
== END 2024-08-17 14:00 | disposition home or self-care (01) | DRG 787 ==
PROVIDERS: Advanced Practice Midwife; Obstetrics & Gynecology; Admitting Provider Obstetrics & Gynecology; PCP Family Medicine; Referring Provider Obstetrics & Gynecology; Visit Provider Obstetrics & Gynecology
DX: O24.420 Gestational diabetes mellitus in childbirth, diet controlled (principal); D62 Acute posthemorrhagic anemia; F31.9 Bipolar disorder, unspecified; F41.9 Anxiety disorder, unspecified; O99.344 Other mental disorders complicating childbirth; Z37.0 Single live birth; O32.4XX0 Maternal care for high head at term, not applicable or unspecified; O61.0 Failed medical induction of labor; O99.892 Other specified diseases and conditions complicating childbirth; R03.0 Elevated blood-pressure reading, without diagnosis of hypertension; O90.81 Anemia of the puerperium; Z79.899 Other long term (current) drug therapy; Z3A.39 39 weeks gestation of pregnancy; Z87.891 Personal history of nicotine dependence
CPT/HCPCS: 59025; 59050; 80307; 82962; 85025; 85027; 86780; 86850; 86900; 86901; 99221; A4216; G0378; J2405